=== PATIENT | female | born 1945 | race Caucasian/White ===

== ENCOUNTER → 2017-12-02 14:30 | Outpatient (CLI) | payer MEDICARE, SELFPAY ==
[2017-12-04 11:49] LABS: Cancer Antigen 125 24.8 U/mL (0.0-38.1)
== END ==
LOC: LABSPEC 14:31 → WOBLAB 14:32
PROVIDERS: Visit Provider Obstetrics & Gynecology
DX: N95.0 Postmenopausal bleeding (principal); D25.9 Leiomyoma of uterus, unspecified
CPT/HCPCS: 36415; 86304

== ENCOUNTER → 2018-01-26 14:35 | Outpatient (CLI) | payer MEDICARE, SELFPAY ==
--- NOTE | 2018-01-26 14:37 | BI_ITS ---
MAMMOGRAPHY - BILATERAL SCREENING REASON FOR EXAM: Female, 72 years old. Routine annual screening examination. PERTINENT HISTORY: Non-contributory. TECHNIQUE: Digital bilateral breast alicia (3D mammographic acquisition) in the CC and MLO projections. 2-D mediolateral oblique (MLO) and craniocaudad (CC) views of both breasts were obtained. CAD: Full Field Digital Mammography with Computer Added Detection was performed. COMPARISON: Comparison is made with prior study dated November 24, 2016 and February 22, 2015. FINDINGS: Breast Composition: There are scattered areas of fibroglandular density. Stable 3.4 mm x 6.5 mm well-defined nodular density in the medial retroareolar region of the left breast. This was demonstrated to be a cyst on prior ultrasound examination. No other significant abnormalities are identified. There has been no significant change since the prior study. BI/SCREENING MAMM (CAD), BILAT IMPRESSION: Stable bilateral screening mammogram. Yearly follow-up mammogram recommended. (A) ASSESSMENT CATEGORY: BIRADS Category 2: Benign. A letter regarding these results will be sent to the patient by the facility within 30 days. Approximately 10% of breast cancers are not detected by mammography. A normal mammogram should not delay biopsy of a clinically suspicious abnormality. [id number] Electronically Signed: Adan Ayala MD at 15:39 EDT Tel [phone], Service support ,
== END ==
PROVIDERS: Family Provider Family Medicine; PCP Family Medicine; Visit Provider Obstetrics & Gynecology
DX: Z12.31 Encounter for screening mammogram for malignant neoplasm of breast (principal)
CPT/HCPCS: 77063; 77067

== ENCOUNTER → 2019-03-17 13:09 | Outpatient (CLI) | payer BC, SELFPAY | PROVIDERS: Visit Provider Obstetrics & Gynecology | DX: N83.299 Other ovarian cyst, unspecified side (principal) | CPT/HCPCS: 36415; 86304 ==

== ENCOUNTER → 2019-05-13 | Outpatient (CLI) | payer MEDICARE, SELFPAY ==
--- NOTE | 2019-05-13 12:59 | BI_ITS ---
MAMMOGRAPHY - BILATERAL SCREENING REASON FOR EXAM: Female, 74 years old. Routine annual screening examination. PERTINENT HISTORY: Non-contributory. TECHNIQUE: Digital bilateral breast evie (3D mammographic acquisition) in the CC and MLO projections. 2-D mediolateral oblique (MLO) and craniocaudad (CC) views of both breasts were obtained. CAD: Full Field Digital Mammography with Computer Added Detection was performed. COMPARISON: Comparison is made with prior study dated January 26, 2018 and November 24, 2016. FINDINGS: Breast Composition: There are scattered areas of fibroglandular density. There are no dominant masses or suspicious calcifications. No other significant abnormalities are identified. There has been no significant change since the prior study. BI/SCREEN MAMM (CAD) W/EVIE BILAT IMPRESSION: Stable bilateral screening mammogram. Yearly follow-up mammogram recommended. (A) ASSESSMENT CATEGORY: BIRADS Category 1: Negative. A letter regarding these results will be sent to the patient by the facility within 30 days. Approximately 10% of breast cancers are not detected by mammography. A normal mammogram should not delay biopsy of a clinically suspicious abnormality. [id number] Electronically Signed: Adan Ayala, at 14:20 EDT , Service support ,
== END | disposition home or self-care (01) ==
PROVIDERS: Family Provider Family Medicine; PCP Family Medicine; Referring Provider Obstetrics & Gynecology; Visit Provider Obstetrics & Gynecology
DX: Z12.31 Encounter for screening mammogram for malignant neoplasm of breast (principal)
CPT/HCPCS: 77063; 77067

== ENCOUNTER 2019-07-30 04:42 | Emergency (ER) | payer MEDICARE, SELFPAY ==
[2019-07-30 04:44] VITALS: BP 166/86; PULSE 82; RESP 16; TEMP 36.8; O2SAT 98; BMI 23.6
[2019-07-30 04:55] VITALS: O2SAT 97
--- NOTE | 2019-07-30 04:55 | EKG12_ITS ---
Test Reason : CHEST PAIN Blood Pressure : / mmHG Vent. Rate : 079 BPM Atrial Rate : 079 BPM P-R Int : 170 ms QRS Dur : 094 ms QT Int : 382 ms P-R-T Axes : 062 044 056 degrees QTc Int : 438 ms Normal sinus rhythm Low voltage QRS Borderline ECG Confirmed by MIKA ROWE, RAYSHAWN ([id number]), film and video editor JAC TOBAR ([id number]) on 08/10/2019 9:23:04 A M Referred By: SUNDEEP Confirmed By:ALVARO BRENNAN MD
--- NOTE | 2019-07-30 04:56 | ED.VIS.GEN ---
History of Present Illness Chief Complaint: Chest Pain Informant: Patient Onset: Today Narrative: Presents for evaluation of chest pain symptoms starting shortly prior to arrival. Reports before midnight ate chili, had indigestion symptoms throughout the night with pain in the mid back. States had multiple bowel movements throughout the night however not diarrhea. No nausea or vomiting. States symptoms chest with slight pressure. Currently pain is in her upper back. No pain with deep breath. No exertional dyspnea. No tobacco history. Mother with DE at age of 72. Hypertension history. No diabetes or hypercholesterolemia. Reports trip to [place] recently, no leg swelling or cramps. No history of stress test. No history of PE or DVT. Prior similar symptoms: No Past Medical History - Allergies and Home Meds Allergies/Adverse Reactions: Allergies No Known Allergies Allergy (Verified 07/30/19 05:30) Primary Care Physician: Omid Tang III, MD [Primary Care Provider] - Smoking Status: Never smoker Review of Systems General: Denies: Chills, Fever, Sweats Eyes: Denies: Visual changes - bilaterally, Diplopia ENT: Denies: Rhinorrhea, Sore throat Cardiovascular: Reports: Chest pain. Denies: Palpitations Respiratory: Denies: Dyspnea, Cough, Dyspnea on exertion Gastrointestinal: Denies: Abdominal pain, Nausea, Vomiting, Diarrhea, Melena, Hematochezia Genitourinary: Denies: Dysuria, Hematuria, Frequency Musculoskeletal: Reports: Back pain. Denies: Extremity Pain Skin: Denies: Rash, Wounds Neurological: Denies: Headache, Weakness, Numbness Physical Exam Vital Signs/Narrative: Vital Signs Temp Pulse Resp BP Pulse Ox 07/30/19 04:44 98.2 F 82 16 166/86 H 98 Inital Vital Signs reviewed: Yes General: Well nourished, Well developed, No Acute Distress Head: Normocephalic, Atraumatic Eyes: Perrl, EOMI ENT: Moist mucous membranes, No rhinorrhea Neck: Supple, Nontender Cardiovascular: Regular rate, Regular rhythm, No murmurs Respiratory: No distress, CTA bilaterally, Chest nontender Abdomen: Soft, Nontender, Nondistended, Normal bowel sounds Back: Nontender, Normal Inspection Extremities: Nontender, No edema Skin: Normal color, No rash Neurological: Alert, Oriented x3, Cranial nerves II-XII grossly intact, Normal Strength, Normal Sensation Psychological: Normal affect, Normal Mood Diagnostic/Tx/Re-eval Abnormal Lab Results 07/30/19 07/30/19 07/30/19 04:50 04:50 04:50 WBC 8.8 RBC 4.43 Hgb 13.6 Hct 40.3 MCV 91.0 MCH 30.7 MCHC 33.7 RDW Std Deviation 44.0 H RDW Coeff of Lizzie 13.3 Plt Count 293 MPV 9.7 Immature Gran % (Auto) 0.200 Neut % (Auto) 60.6 Lymph % (Auto) 25.7 Rusk % (Auto) 11.0 H Eos % (Auto) 1.7 Baso % (Auto) 0.8 Absolute Neuts (auto) 5.3 Absolute Lymphs (auto) 2.27 Nucleated RBC % 0 PT 13.9 INR 1.1 APTT 30.2 D-Dimer Quant (PE/DVT) 0.51 H* Sodium 143 Potassium 3.7 Chloride 108 H Carbon Dioxide 26.0 Anion Gap 9 BUN 14 Creatinine 0.89 Estim Creat Clear Calc 51.13 Est GFR (MDRD) Af Amer 80 Est GFR (MDRD) Non-Af 66 BUN/Creatinine Ratio 15.7 Glucose 111 H Calcium 8.8 Total Bilirubin 0.40 Direct Bilirubin 0.11 AST 13 L ALT 15 Alkaline Phosphatase 55 Troponin I < 0.015 Total Protein 7.7 Albumin 3.9 Globulin 3.8 Lipase 124 Clinical Impression(s) from Imaging Studies Chest CTA 07/30/19 05:34 IMPRESSION: No demonstrated pulmonary embolism or arterial dissection. There is bronchiectasis in the right lung lower lobe. Cholelithiasis. Electronically Signed: Randy Machado, at 6:54 EDT Tel , Service support , - EKG Initial EKG Interpretation: Sinus Rhythm - Sinus rate of 79, no ST changes. Isolated T wave inversion in leads III. - Medical Decision Making Patient EKG nonspecific T wave inversion. She is chest pain-free on my evaluation, is complaining of more upper mid back pain. Labs are checked including abdominal labs of liver and lipase was normal troponin negative. D-dimer was slightly up at 0.51. She had increasing back pain during evaluation in the department. Initial order for morphine however she declined this and requested ibuprofen, 600 mg was given. Patient's age-adjusted d-dimer is normal, however she reports increasing pain therefore discussed obtaining CT angiogram for further rule out. She agreed. Results returned negative for any lung pathology noted cholelithiasis, she has no right upper quadrant pain. Her liver and lipase were normal white count is normal. Patient's heart score is a 3. Reevaluation states mild discomfort, will try GI cocktail, discussed heart pathway guideline with the patient, she will stay for 3-hour troponin. If negative, will have follow-up with PCP for further testing as outpatient. Signs and symptoms discussed return. All questions were answered. ED Disposition - Plan for ED Patient: Disposition: Home or Assisted Living Diagnosis: Chest pain, Cholelithiases Instructions: CHEST PAIN, Uncertain Cause, What Are Gallstones? Referrals: Omid Tang III, MD [Primary Care Provider] - 3-5 Days
[2019-07-30 05:21] LABS: Absolute Lymphocyte Count 2.27 X10^3/uL (0.83-4.51); Absolute Neutrophil Count 5.3 X10^3/uL (2.0-7.7); Basophil# 0.07 X10^3/uL; Basophil% 0.8 % (0-1); Eosinophil# 0.15 X10^3/uL; Eosinophils% 1.7 % (0-5); Hematocrit 40.3 % (37-47); Hemoglobin 13.6 g/dL (12.0-15.0); Lymphocyte # 2.27 X10^3/ul (4.0); Lymphocyte % 25.7 % (19-41); Mean Corp Hgb Conc 33.7 g/dL (32-36); Mean Corpuscular Hgb 30.7 pg (27.0-32.0); Mean Platelet Vol. 9.7 fl (6.2-12.0); Monocyte# 0.97 X10^3/uL; NRBC Flagged by Analyzer 0 % (0-5); Neutrophil # 5.34 X10^3/uL (2.7-7.7); Neutrophil % 60.6 % (47-70); Platelet Count 293 K/mm3 (150-450); RBC Distribution Width CV 13.3 % (11.6-14.6); Red Blood Count 4.43 M/mm3 (4.2-5.4); White Blood Count 8.8 K/mm3 (4.4-11.0)
[2019-07-30 05:27] LABS: AST(SGOT) 13 U/L (15-37); Alanine Aminotransfer ALT/SGPT 15 U/L (13-56); Albumin, Serum 3.9 g/dL (3.2-5.0); Alkaline Phosphatase 55 U/L (45-117); Anion Gap 9 (5-15); BUN 14 mg/dL (7-18); BUN/Creat Ratio 15.7 RATIO (10-20); Bilirubin, Direct 0.11 mg/dL (0.00-0.30); Calcium,Total 8.8 mg/dL (8.5-10.1); Chloride 108 mmol/L (98-107); Creatinine, Serum 0.89 mg/dL (0.55-1.02); EST Glomerular Filtration Rate 66 mL/min (>60); Est Glom Filt Rate - Afr Amer 80 mL/min (>60); Estimated Creatinine Clearance 51.13 ml/min; Globulin 3.8 g/dL (2.2-4.2); Glucose 111 mg/dL (74-106); Lipase 124 U/L (73-393); Potassium 3.7 mmol/L (3.5-5.1); Protein, Total 7.7 g/dL (6.4-8.2); Sodium Level 143 mmol/L (136-145)
[2019-07-30 05:28] LABS: International Normalized Ratio 1.1; Prothrombin Time (Protime)PT. 13.9 SECONDS (11.7-14.9)
[2019-07-30 05:29] LABS: Partial Thromboplast Time 30.2 Seconds (24.1-36.2)
[2019-07-30 05:32] LABS: D-Dimer Quantitative (DVT/PE) 0.51 FEU/ug/m (0.27-0.49)
--- NOTE | 2019-07-30 05:34 | CT_ITS ---
STUDY: CTA CHEST REASON FOR EXAM: Female, 74 years old. Chest and back pain. Elevated d-dimer. RADIATION DOSAGE (If Supplied By Facility): CTDIvol = ( 9.42 ) mGy, DLP = ( 253.17 ) mGycm TECHNIQUE: The examination was performed with the intravenous administration of IV 100mL [id number]-370 100ML. Post-processing of the angiographic images was performed, with multiplanar reformation and 3D reconstruction. Individualized dose optimization techniques were used for this CT. COMPARISON: None. FINDINGS: Normal enhancement of the main pulmonary artery and right and left pulmonary arteries. Normal enhancement of the bilateral peripheral pulmonary arteries. There is no demonstrated pulmonary embolism. Normal thoracic aorta and visualized great vessels. There is no demonstrated aortic dissection. Normal heart and pericardium. Normal mediastinum. Normal hilar regions. Normal visualized trachea and bronchi. The lungs are well expanded. There is bronchiectasis in the right lung lower lobe. Normal pleura. Normal chest wall structures. Normal osseous structures. Normal visualized upper abdomen. CT/CTA Chest W/WO Contrast IMPRESSION: No demonstrated pulmonary embolism or arterial dissection. There is bronchiectasis in the right lung lower lobe. Cholelithiasis. Electronically Signed: Randy Machado, at 6:54 EDT Tel , Service support ,
--- NOTE | 2019-07-30 05:34 | ED.RN ---
notified MD of d-dimer 0.51
[2019-07-30] MEDS: Ibuprofen 600 MG Tablet PO (05:35)
[2019-07-30 06:37] VITALS: BP 148/76; PULSE 68; RESP 18; O2SAT 97
[2019-07-30] MEDS: Mag Hydrox/Al Hydrox/Simeth 30 ML UDC PO (07:14)
[2019-07-30 07:45] VITALS: BP 151/78; PULSE 68; RESP 18; O2SAT 94
[2019-07-30 08:02] VITALS: BP 148/75; PULSE 67; RESP 18; O2SAT 96
== END 2019-07-30 09:06 | disposition home or self-care (01) ==
PROVIDERS: Emergency Provider Emergency Medicine; Family Provider Family Medicine; PCP Family Medicine
DX: K80.20 Calculus of gallbladder without cholecystitis without obstruction (principal); R07.89 Other chest pain; J47.9 Bronchiectasis, uncomplicated; I10 Essential (primary) hypertension; Z79.899 Other long term (current) drug therapy
CPT/HCPCS: 71275; 80048; 80076; 83690; 84484; 85025; 85379; 85610; 85730; 93005; 99285; Q9967; A4216

== ENCOUNTER 2019-09-26 11:34 | Day surgery (SDC) | payer MEDICARE, SELFPAY ==
[2019-08-23 09:24] VITALS: BMI 23.6
--- NOTE | 2019-08-23 10:04 | HP_ITS ---
Intake Vital Signs 08/23/19 Body Mass Index (BMI) 23.6 08/23/19 Height 5 ft 6 in 08/23/19 Weight: 142 lb 08/23/19 Body Mass Index (BMI) 22.8 08/23/19 Blood Pressure 165/75 H 08/23/19 Blood Pressure Location Rt brachial 08/23/19 Blood Pressure Position Sitting 08/23/19 Respiratory Rate 18 08/18/19 Body Mass Index (BMI) 23.6 Intake Visit Reasons: Cholithiasis CT 07/30 [facility] Seat Mender Required: No Is patient in pain?: No Allergies No Known Allergies Allergy (Verified 08/23/19 09:23) Medications Amlodipine Besylate 1 tab PO DAILY 07/30/19 [History Confirmed 08/23/19] Balsalazide Disodium 3 cap PO BID 07/30/19 [History Confirmed 08/23/19] Metoprolol(XL)Succ [Toprol Xl (Beta Gladys)] 50 mg PO DAILY 07/30/19 [History Confirmed 08/23/19] hydrochlorothiazide 12.5 mg tablet 12.5 mg PO .prn tab 08/23/19 [History Confirmed 08/23/19] [facility] Medical History HTN (hypertension) (Chronic) Family History Father Heart disease Hypertension Kidney disease CVA (cerebral vascular accident) Mother Heart disease Social History (Updated 08/23/19 @ 10:04 by Magnus Bruno MD) Smoking Status: Never smoker alcohol intake: never HPI HPI HPI: LUKE HUNTER, is a 74 F who presents to the office today for HPI HPI Surgical H&P: Yes HPI: LUKE HUNTER, is a 74 F who presents to the office today for Evaluation of symptomatic cholelithiasis. Patient had an episode of back pain that developed after she ate 2 bowls of chili and then a jelly donut. This progressed from back pain to chest pain with nausea. She subsequently went to the emergency department where she had a rather exhaustive work-up to include a CT scan of the chest which showed no pulmonary embolism or arterial dissection she had bronchiectasis in the right lung lobes and cholelithiasis. Patient states that she has had multiple episodes of waking up in the middle the night with back pain that have subsequently went away after taking some aspirin and having a bowel movement this is probably been going on for better than 5 years. Currently she is asymptomatic she does not have any abdominal pain she is not experiencing any nausea she is tolerating a diet and moving her bowels.Her liver function test at the time that she was having this episode were within normal limits. ROS General General: No weight change, appetite, fatigue, colon cancer, breast cancer or weakness HEENT HEENT: No difficulty swallowing, eye injury, eye surgery, swollen glands or hoarseness Endo Endocrine: No thyroid disease, diabetes mellitus, thyroid cancer, Hair loss, heat intolerance or cold intolerance Skin Skin: No rash or changing moles Breast Breast: No left breast lump, right breast lump, nipple discharge, breast pain, abnormal mammogram, abnormal US or breast enlargement Musc Musculoskeletal: No back problems, arthritis, rheumatoid arthritis, gout or joint pain Cardio Cardiovascular: Yes high blood pressure; no murmur, pacemaker, heart disease, atrial fibrillation, heart attack, heart stent, palpitations, shortness of breat with exertion or chest pain Psych Psychiatric: No depression, anxiety or hearing voices Resp Respiratory: No shortness of breath, No sleep apnea, No cough, No COPD, No asthma, No emphysema, No wheezing Gastro Gastrointestinal: No abdominal pain, No nausea or vomiting, No diarrhea, No constipation, No blood in stool, No acid reflux, No hemorrhoids, No ulcers, Yes gallbladder problem, No black,tarry stools Zane Hematologic: No blood thinners, No blood disorders, No bleeding, No anemia, No blood clots Neuro Neurologic: No system reviewed and no additional complaints, except as docu, No as per HPI, No abnormal walking, No abnormal hearing, No abnormal movements, No abnormal speech, No behavioral changes, No burning sensations, No confusion, No seizure-like activity, No unsteadiness, No dizziness, No localized weakness, No frequent falls, No headache(s), No lack of coordination, No loss of vision, No memory loss, No numbness, No other visual disturbances, No radiating pain, No restless legs, No sensory deficit, No fainting, No tingling, No tremor(s), No weakness, No other Exam Const General: no acute distress, well developed, well hydrated Orientation: oriented to person, oriented to place, oriented to time [facility] Head: normocephalic, atraumatic Ears: external ears normal Mouth: moist mucous membranes Eyes Sclera: sclerae normal Pupils: normal by confrontation Neck Neck: no lymphadenopathy noted Neck mass: No Thyroid: thyroid normal, symmetrical Chest Chest palpation & inspection: normal inspection of the chest Breast Palpation: No nipple discharge Resp Effort & Inspection: normal respiratory effort Auscultation: clear to auscultation bilaterally Percussion: percussion normal Cardio Rate: regular rate Rhythm: regular rhythm Heart Sounds: no murmurs GI Palpation: soft, no hepatosplenomegaly, no masses, nontender Rectal Exam: other Other: Rectal exam deferred. Extrem General: normal to inspection, no clubbing, cyanosis or edema Assessment & Plan Problems 1. Calculus of gallbladder with chronic cholecystitis without obstruction K80.10 Plan Reviewed the anatomy with the patient and discussed the procedure: Robotic assisted laparoscopic cholecystectomy with possible cholangiograms, possible open. Review risks including but not limited to bleeding, infection, hernia, bile leak, retained gallstones requiring another procedure ERCP- Endoscopic Retrograde Cholangiopancreatography, injury to another organ (bile ducts, common bile duct, small bowel, etc.) and conversion to an open procedure. All questions were answered. Coding Level of Care Code Off vis,new,level 3 Diagnoses Calculus of gallbladder with chronic cholecystitis without obstruction K80.10 ??Cholelithiasis location: gallbladder ??Cholecystitis acuity: chronic 08/23/19 1004 <Electronically signed by Magnus peter MD> Date _ Magnus Bruno MD I have re-examined the patient. There are no clinical changes since date of exam.
--- NOTE | 2019-09-26 09:28 | HP_ITS ---
Intake Vital Signs 08/23/19 Body Mass Index (BMI) 23.6 08/23/19 Height 5 ft 6 in 08/23/19 Weight: 142 lb 08/23/19 Body Mass Index (BMI) 22.8 08/23/19 Blood Pressure 165/75 H 08/23/19 Blood Pressure Location Rt brachial 08/23/19 Blood Pressure Position Sitting 08/23/19 Respiratory Rate 18 08/18/19 Body Mass Index (BMI) 23.6 Intake Visit Reasons: Cholithiasis CT 07/30 [facility] Bed Worker Required: No Is patient in pain?: No Allergies No Known Allergies Allergy (Verified 08/23/19 09:23) Medications Amlodipine Besylate 1 tab PO DAILY 07/30/19 [History Confirmed 08/23/19] Balsalazide Disodium 3 cap PO BID 07/30/19 [History Confirmed 08/23/19] Metoprolol(XL)Succ [Toprol Xl (Beta Gladys)] 50 mg PO DAILY 07/30/19 [History Confirmed 08/23/19] hydrochlorothiazide 12.5 mg tablet 12.5 mg PO .prn tab 08/23/19 [History Confirmed 08/23/19] [facility] Medical History HTN (hypertension) (Chronic) Family History Father Heart disease Hypertension Kidney disease CVA (cerebral vascular accident) Mother Heart disease Social History (Updated 08/23/19 @ 10:04 by Magnus Bruno MD) Smoking Status: Never smoker alcohol intake: never HPI HPI HPI: LUKE HUNTER, is a 74 F who presents to the office today for HPI HPI Surgical H&P: Yes HPI: LUKE HUNTER, is a 74 F who presents to the office today for Evaluation of symptomatic cholelithiasis. Patient had an episode of back pain that developed after she ate 2 bowls of chili and then a jelly donut. This progressed from back pain to chest pain with nausea. She subsequently went to the emergency department where she had a rather exhaustive work-up to include a CT scan of the chest which showed no pulmonary embolism or arterial dissection she had bronchiectasis in the right lung lobes and cholelithiasis. Patient states that she has had multiple episodes of waking up in the middle the night with back pain that have subsequently went away after taking some aspirin and having a bowel movement this is probably been going on for better than 5 years. Currently she is asymptomatic she does not have any abdominal pain she is not experiencing any nausea she is tolerating a diet and moving her bowels.Her liver function test at the time that she was having this episode were within normal limits. ROS General General: No weight change, appetite, fatigue, colon cancer, breast cancer or weakness HEENT HEENT: No difficulty swallowing, eye injury, eye surgery, swollen glands or hoarseness Endo Endocrine: No thyroid disease, diabetes mellitus, thyroid cancer, Hair loss, heat intolerance or cold intolerance Skin Skin: No rash or changing moles Breast Breast: No left breast lump, right breast lump, nipple discharge, breast pain, abnormal mammogram, abnormal US or breast enlargement Musc Musculoskeletal: No back problems, arthritis, rheumatoid arthritis, gout or joint pain Cardio Cardiovascular: Yes high blood pressure; no murmur, pacemaker, heart disease, atrial fibrillation, heart attack, heart stent, palpitations, shortness of breat with exertion or chest pain Psych Psychiatric: No depression, anxiety or hearing voices Resp Respiratory: No shortness of breath, No sleep apnea, No cough, No COPD, No asthma, No emphysema, No wheezing Gastro Gastrointestinal: No abdominal pain, No nausea or vomiting, No diarrhea, No constipation, No blood in stool, No acid reflux, No hemorrhoids, No ulcers, Yes gallbladder problem, No black,tarry stools Zane Hematologic: No blood thinners, No blood disorders, No bleeding, No anemia, No blood clots Neuro Neurologic: No system reviewed and no additional complaints, except as docu, No as per HPI, No abnormal walking, No abnormal hearing, No abnormal movements, No abnormal speech, No behavioral changes, No burning sensations, No confusion, No seizure-like activity, No unsteadiness, No dizziness, No localized weakness, No frequent falls, No headache(s), No lack of coordination, No loss of vision, No memory loss, No numbness, No other visual disturbances, No radiating pain, No restless legs, No sensory deficit, No fainting, No tingling, No tremor(s), No weakness, No other Exam Const General: no acute distress, well developed, well hydrated Orientation: oriented to person, oriented to place, oriented to time [facility] Head: normocephalic, atraumatic Ears: external ears normal Mouth: moist mucous membranes Eyes Sclera: sclerae normal Pupils: normal by confrontation Neck Neck: no lymphadenopathy noted Neck mass: No Thyroid: thyroid normal, symmetrical Chest Chest palpation & inspection: normal inspection of the chest Breast Palpation: No nipple discharge Resp Effort & Inspection: normal respiratory effort Auscultation: clear to auscultation bilaterally Percussion: percussion normal Cardio Rate: regular rate Rhythm: regular rhythm Heart Sounds: no murmurs GI Palpation: soft, no hepatosplenomegaly, no masses, nontender Rectal Exam: other Other: Rectal exam deferred. Extrem General: normal to inspection, no clubbing, cyanosis or edema Assessment & Plan Problems 1. Calculus of gallbladder with chronic cholecystitis without obstruction K80.10 Plan Reviewed the anatomy with the patient and discussed the procedure: Robotic assisted laparoscopic cholecystectomy with possible cholangiograms, possible open. Review risks including but not limited to bleeding, infection, hernia, bile leak, retained gallstones requiring another procedure ERCP- Endoscopic Retrograde Cholangiopancreatography, injury to another organ (bile ducts, common bile duct, small bowel, etc.) and conversion to an open procedure. All questions were answered. Coding Level of Care Code Off vis,new,level 3 Diagnoses Calculus of gallbladder with chronic cholecystitis without obstruction K80.10 ??Cholelithiasis location: gallbladder ??Cholecystitis acuity: chronic
[2019-09-26 12:02] VITALS: BP 152/68; PULSE 80; RESP 15; TEMP 37; O2SAT 98; BMI 21.4
[2019-09-26] MEDS: Lactated Ringers 1,000 ML 100 ML IV ×2 (12:15→12:29)
--- NOTE | 2019-09-26 13:40 | GALL_PTH ---
PATIENT: LUKE HUNTER LOC: [facility] [place] U#:[id number] AGE/SX: 74/F ROOM: RE09/26/[address]: Dr. Magnus Bruno MD : 1945 BED: DIS: 09/26/2019 SPEC #: [id number] RECD: 09/27/19 08:18 STATUS: ANALY RELaura #: [id number] ALLEN: 09/26/19 13:[address]: Magnus Bruno DEPT: SURGICAL PATHOLOGY RECD BY: Bonifacio Bryan ENTERED: 09/27/19 08:39 SP TYPE: SMITH RODRIGUEZ DR: Dr. Omid Tang III, MD Tissues: Gallbladder, NOS Procedures: Surgery Specimen Level III HEADER OPERATION: Robotic assisted laparoscopic cholecystectomy PRE-OP DIAGNOSIS: Symptomatic cholelithiasis TISSUE SUBMITTED: Gallbladder MICROSCOPIC DIAGNOSIS Gallbladder, cholecystectomy: Chronic cholecystitis and cholelithiasis. AM:sarabjit 09/28/19 MICROSCOPIC DESCRIPTION Slides are reviewed. GROSS DESCRIPTION Received is one container labeled with the patient's name and designated gallbladder. The specimen consists of a gallbladder measuring 9.5 x 4 x 3 cm. The external surface is smooth and glistening. Focally, it is granular, hemorrhagic and contains cautery artifact. The lumen of the gallbladder contains yellow-green mucoid bile and multiple black stones averaging 1.6 cm in greatest dimension. The mucosa is bile-stained and without any mass lesions. The gallbladder wall averages 0.1 cm in thickness and is free of mass lesions. Regional Project Manager sections of the gallbladder and the cystic duct are submitted in one cassette. / AM:sarabjit 09/27/19 TC:3 CPT: 31911
--- NOTE | 2019-09-26 14:38 | PCM.DC.GB ---
Discharge Diet: Light diet - advance as tolerated Discharge Activity: May Not Drive - for 2-3 days or while taking narcotic pain medications., - - Do not drive, work heavy equipment or sign legal documents for 24 hours. May shower in (days): 1 - with the bandage in place. Additional Activity Instructions:: Pain medication may cause nausea. You should typically eat light foods as you take your pain medications. Pain medication may also cause constipation. If this is a problem for you, please discuss with your doctor. Call your doctor if your incision/area has: Continuous Slow Oozing, Sudden Increased Bleeding, Increased Pain/ Swelling, Increased Redness, Foul Smelling Discharge Call your doctor if you observe: Fever of 101 or Higher Suture Line Care: Avoid Pulling/Pushing, Avoid Pinching/Bending Additional Dressing/Incision Instructions:: Leave operative bandaids on for 2 days. When you remove dressing, leave Steri-Strips on until your follow-up appointment, or until the Steri-Strips fall off on their own. Allergies/Adverse Reactions: Allergies lidocaine Adverse Reaction (Verified 09/26/19 12:01) Other severe shaking, increased HR Medications to take at Discharge Amlodipine Besylate 1 tab PO DAILY 07/30/19 Balsalazide Disodium 3 cap PO BID 07/30/19 Metoprolol(XL)Succ [Toprol Xl (Beta Gladys)] 50 mg PO DAILY 07/30/19 hydrochlorothiazide 12.5 mg tablet 12.5 mg PO .prn tab 08/23/19 Budesonide/Formoterol Fumarate [Symbicort 80-4.5 Mcg Inhaler] 1 puff IH DAILY 09/19/19 Cetirizine HCl [Zyrtec] 10 mg PO DAILY 09/19/19 Oxycodone HCl/Acetaminophen [Percocet 5/325] 1 - 2 tablet PO Q4H PRN PRN 4 Days #15 tablet 09/26/19 The following prescriptions were given: Oxycodone HCl/Acetaminophen [Percocet 5/325] 1 - 2 tablet PO Q4H PRN PRN 4 Days #15 tablet PRN Reason: Pain Transmission Status: Sent to [id number] Primary Care Physician: Omid Tang III, MD [Primary Care Provider] - Test Results: Test results from this visit will be discussed in further detail at your follow-up appointment, if applicable. Please Follow Up With: Magnus Bruno MD - Please call [phone] to schedule an appointment. When: 7 days after your surgery.
--- NOTE | 2019-09-26 14:38 | PCM.OPRPT ---
Problem List (1) Calculus of gallbladder with chronic cholecystitis without obstruction Status: Chronic Report of Operation Date of Procedure: 09/26/19 Pre-Operative Diagnosis: Symptomatic cholelithiasis Post-Operative Diagnosis: Same Surgery/Procedure Performed:: Robotically assisted laparoscopic cholecystectomy Type of Anesthesia:: General Anesthesiologist: Irvin Ferro Specimen's removed: Gallbladder Estimated Blood Loss (mL): < 25 cc Fluids Replaced: 1500 cc lr Description of Procedure: Patient was brought into the operating room. Placed in the supine position. Under excellent general anesthetic bed was placed in the upright position and rotated to the left and sterilely prepped draped in usual fashion. Incision above the umbilicus was made dissection was carried down to the fascia the fascia grasped with a Darian varies needle was placed inside the abdomen the abdomen was insufflated to 15 torr a 10/12 trocar was placed without difficulty. It was flank on the right by a #8 trocar and on the left #8 trocar and then further left with a #5 trocar. All these were placed under direct visualization without injury to underlying structures. The robot was brought in docked appropriately. The #5 trocar grasper was placed under direct visualization the fundus of the gallbladder was grasped and retracted in a cephalad direction. Significant adhesions were taken down from the gallbladder itself and the gallbladder was retracted further cephalad. I dissected out the cystic duct and the cystic artery and then posteriorly identifying my triangle without difficulty. I placed hemoclips proximally distally on the duct and ligated the duct I placed hemoclips proximally distally on the artery and ligated the artery. I used electrocautery for good hemostasis and the liver the gallbladder from the gallbladder bed without difficulty. I irrigated I had good hemostasis using cautery on the liver bed and a few spot areas. Placed a specimen in a specimen bag delivered through the umbilical port but I did have to lengthen the umbilical port and inferior direction just to get all of the gallstones out. I remove the trochars under direct visualization good hemostasis was noted. I closed the fascia the umbilical port with a [id number] stitch of 0 Vicryl x2 local was injected. Skin incisions were brought together with some particular stitches of 4-0 Monocryl. Steri-Strips applied sterile dressings were applied and the patient tolerated the procedure well. - Admit VTE Documentation VTE Present on Admission: No VTE Mechan Device Prophylaxis: SCD's VTE Pharm Prophylaxis ordered?: No Reason prophylaxis not ordered:: Treatment Not Indicated
[2019-09-26] MEDS: Cefazolin 2 GM in 0.9% Normal Saline 100 ML IV (14:46)
[2019-09-26] MEDS: Bupivacaine Mpf 0.5% 30 ML VIAL (15:50)
[2019-09-26 16:20] VITALS: BP 142/76; BP 152/68; PULSE 93; RESP 16; TEMP 36.6; O2SAT 100
[2019-09-26 16:30] VITALS: BP 141/72; BP 152/68; PULSE 72; RESP 16; O2SAT 96
[2019-09-26 16:45] VITALS: BP 142/75; BP 152/68; PULSE 70; RESP 16; O2SAT 99
[2019-09-26 16:52] VITALS: BP 136/69; BP 152/68; PULSE 62; RESP 16; TEMP 36.6; O2SAT 99
[2019-09-26 18:30] VITALS: BP 144/72; BP 152/68; PULSE 69; RESP 16; TEMP 37.1; O2SAT 96
== END 2019-09-26 18:37 | disposition home or self-care (01) ==
LOC: SDC 11:34 → AC 12:36
PROVIDERS: Family Provider Family Medicine; PCP Family Medicine; Referring Provider Surgery; Visit Provider Surgery
PROC: 0FT44ZZ Resection of Gallbladder, Percutaneous Endoscopic Approach (ICD-10-PCS; CPT 47562; principal; 2019-09-26 13:20)
DX: K80.10 Calculus of gallbladder with chronic cholecystitis without obstruction (principal); I10 Essential (primary) hypertension; Z79.899 Other long term (current) drug therapy
CPT/HCPCS: 00790; 47562; 88304; J7120; J2405; J3490

== ENCOUNTER → 2020-06-14 14:47 | Outpatient (CLI) | payer MEDICARE, SELFPAY ==
--- NOTE | 2020-06-14 14:49 | BI_ITS ---
MAMMOGRAPHY - BILATERAL SCREENING 3-D TOMOSYNTHESIS REASON FOR EXAM: Female, 75 years old. Annual screening mammogram. PERTINENT HISTORY: No significant family history. TECHNIQUE: 2-D mammograms and 3-D Tomosynthesis of the breast (s) were performed. CAD was performed. COMPARISON: 05/13/2019, 01/26/2018 FINDINGS: The breast composition is almost entirely fat. Scattered benign calcifications are seen. No dense spiculated masses or suspicious microcalcifications are identified. No architectural distortion is identified. There is no skin thickening or retraction. There has been no significant change since the prior study. BI/SCREEN MAMM (CAD) W/EVIE BILAT IMPRESSION: No mammographic signs of malignancy. Routine yearly mammograms recommended. ASSESSMENT CATEGORY: BIRADS Category 1: Negative. A letter regarding these results will be sent to the patient by the facility within 30 days. FOLLOW UP RECOMMENDATION: Yearly follow up mammogram recommended. (A) Approximately 10% of breast cancers are not detected by mammography. A normal mammogram should not delay biopsy of a clinically suspicious abnormality. Electronically Signed: Gordy Leal MD at 14:56 EDT , Service support ,
== END ==
PROVIDERS: PCP Family Medicine; Referring Provider Obstetrics & Gynecology; Visit Provider Obstetrics & Gynecology
DX: Z12.31 Encounter for screening mammogram for malignant neoplasm of breast (principal)
CPT/HCPCS: 77063; 77067

== ENCOUNTER → 2020-09-12 | Outpatient (CLI) | payer MEDICARE, SELFPAY | END | disposition home or self-care (01) | LOC: LABSPEC 15:26 | PROVIDERS: PCP Family Medicine; Visit Provider Obstetrics & Gynecology | DX: N30.00 Acute cystitis without hematuria (principal) | CPT/HCPCS: 87077; 87086; 87088; 87186 ==

== ENCOUNTER → 2021-06-24 14:53 | Outpatient (CLI) | payer MEDICARE, SELFPAY ==
--- NOTE | 2021-06-24 14:55 | BI_ITS ---
MAMMOGRAPHY - BILATERAL SCREENING 3-D TOMOSYNTHESIS REASON FOR EXAM: Female, 76 years old. SCREENING PERTINENT HISTORY: No significant family history. TECHNIQUE: 2-D mammograms and 3-D Tomosynthesis of the breast (s) were performed. CAD was performed. COMPARISON: 06/14/2020 FINDINGS: The breast composition is composed of scattered fibroglandular density. Scattered benign calcifications are seen. 8 mm oval obscured mass in the lower outer quadrant of the right breast and focal compression views recommended for further evaluation. No dominant mass left breast. No suspicious calcifications.. No architectural distortion is identified. There is no skin thickening or retraction. There has been no significant change since the prior study. BI/SCRN MAMM (CAD)W/EVIE BILAT IMPRESSION: 8mm oval obscured mass in the lower outer quadrant right breast and focal compression views recommended for further evaluation. ASSESSMENT CATEGORY: BIRADS Category 0: Incomplete. Need additional imaging evaluation as above. A letter regarding these results will be sent to the patient by the facility within 30 days. FOLLOW UP RECOMMENDATION: Additional imaging recommended as above. (E) Approximately 10% of breast cancers are not detected by mammography. A normal mammogram should not delay biopsy of a clinically suspicious abnormality. Electronically Signed: Norm Xavier MD at 18:12 EDT Tel , Service support ,
== END ==
PROVIDERS: Referring Provider Obstetrics & Gynecology; Visit Provider Obstetrics & Gynecology
DX: Z12.31 Encounter for screening mammogram for malignant neoplasm of breast (principal)
CPT/HCPCS: 77063; 77067

== ENCOUNTER → 2021-06-28 14:24 | Outpatient (CLI) | payer MEDICARE, SELFPAY ==
--- NOTE | 2021-06-28 14:32 | BI_ITS ---
MAMMOGRAPHY - UNILATERAL DIAGNOSTIC: RIGHT BREAST REASON FOR EXAM: Female, 76 years old. 8ML OVAL MASS ON RIGHT BREAST PERTINENT HISTORY: Non-contributory. TECHNIQUE: Digital examination. Mediolateral oblique (MLO) and craniocaudad (CC) views of the breast were obtained. CAD: CAD was not performed on this study. COMPARISON: 06/24/2021 FINDINGS: Breast Composition: There are scattered areas of fibroglandular density. Focal compression views do not confirm a mass in the lower outer quadrant of the right breast most consistent with normal breast parenchyma appear No other significant abnormalities are identified. BI/DIAG MAMM W/CAD, UNILAT IMPRESSION: Stable unilateral diagnostic mammogram. ASSESSMENT CATEGORY: BIRADS Category 1: Negative. A letter regarding these results will be sent to the patient by the facility within 30 days. FOLLOW-UP RECOMMENDATION: Yearly follow-up mammogram recommended. (A) Approximately 10% of breast cancers are not detected by mammography. A normal mammogram should not delay biopsy of a clinically suspicious abnormality. Electronically Signed: Norm Xavier MD at 15:26 EDT Tel , Service support ,
== END ==
PROVIDERS: Referring Provider Obstetrics & Gynecology; Visit Provider Obstetrics & Gynecology
DX: N63.13 Unspecified lump in the right breast, lower outer quadrant (principal)
CPT/HCPCS: 77065

== ENCOUNTER → 2021-10-17 14:23 | Outpatient (CLI) | payer MEDICARE, SELFPAY ==
--- NOTE | 2021-10-17 14:15 | EMB_PTH ---
PATIENT: LUKE HUNTER LOC: [facility] U#:[id number] AGE/SX: 80/F ROOM: RE10/17/[address]: Dr. Bhargav Ferro MD : [id number] BED: DIS: SPEC #: [id number] RECD: 10/17/21 16:47 STATUS: ANALY TING #: [id number] ALLEN: 10/17/21 14:[address]: Bhargav Ferro DEPT: SURGICAL PATHOLOGY RECD BY: Ramona Carmichael ENTERED: 10/20/21 17:03 SP TYPE: ENDOM BX/C JENNIFER DR: No Primary Care Phys Tissues: Endometrium, NOS Procedures: Surgery Specimen Level IV HEADER OPERATION: Endometrial biopsy PRE-OP DIAGNOSIS: PMB TISSUE SUBMITTED: Endometrial biopsy MICROSCOPIC DIAGNOSIS Endometrial biopsy: Strips benign endometrial epithelium and superficial fragments of benign endometrial tissue, consistent with atrophic endometrium and blood clots. SJ:sarabjit 10/22/2021 MICROSCOPIC DESCRIPTION Slides are reviewed. GROSS DESCRIPTION Received in fixative is one container labeled with the patient's name and designated EM biopsy. The specimen consists of multiple fragments of hemorrhagic soft tissue that in aggregate measure 1.5 x 0.5 x 0.1 cm. The specimen is totally submitted in one cassette. / SJ:sarabjit 10/21/21 TC:4 CPT: 44211
[2021-10-19 11:53] LABS: Cancer Antigen 125 15.1 U/mL (0.0-38.1)
== END ==
PROVIDERS: Visit Provider Obstetrics & Gynecology
DX: N95.0 Postmenopausal bleeding (principal)
CPT/HCPCS: 36415; 86304; 88305

== ENCOUNTER → 2022-10-03 | Outpatient (CLI) | payer MEDICARE, SELFPAY ==
[2022-10-03 13:12] LABS: LDH 152 U/L (84-246)
[2022-10-04 09:48] LABS: AFP, Tumor Marker 2.5 ng/mL (0.0-9.2); Cancer Antigen 125 17.8 U/mL (0.0-38.1); Carbohydrate AG 19-9 9 U/mL (0-35); Carcinoembryonic Antigen 1.4 ng/mL (0.0-4.7)
== END | disposition home or self-care (01) ==
LOC: WOBLAB 10:12
PROVIDERS: Visit Provider Student in an Organized Health Care Education/Training Program
DX: N83.201 Unspecified ovarian cyst, right side (principal)
CPT/HCPCS: 36415; 82105; 82378; 83615; 86301; 86304

== ENCOUNTER → 2022-10-14 | Outpatient (CLI) | payer MEDICARE, SELFPAY ==
--- NOTE | 2022-10-14 12:37 | BI_ITS ---
MAMMOGRAPHY - BILATERAL SCREENING REASON FOR EXAM: Female, 77 years old. Routine annual screening examination. PERTINENT HISTORY: Non-contributory. TECHNIQUE: Digital bilateral breast evie (3D mammographic acquisition) in the CC and MLO projections. 2-D mediolateral oblique (MLO) and craniocaudad (CC) views of both breasts were obtained. CAD: Full Field Digital Mammography with Computer Added Detection was performed. COMPARISON: Comparison is made with prior study dated 06/24/2021 and 06/14/2020. FINDINGS: Breast Composition: There are scattered areas of fibroglandular density. There are no dominant masses or suspicious calcifications. No other significant abnormalities are identified. There has been no significant change since the prior study. BI/SCRN MAMM (CAD)W/EVIE BILAT IMPRESSION: Stable bilateral screening mammogram. Yearly follow-up mammogram recommended. (A) ASSESSMENT CATEGORY: BIRADS Category 1: Negative. A letter regarding these results will be sent to the patient by the facility within 30 days. Approximately 10% of breast cancers are not detected by mammography. A normal mammogram should not delay biopsy of a clinically suspicious abnormality. [id number] Electronically Signed: Adan Ayala MD at 14:11 EST ,
== END | disposition home or self-care (01) ==
LOC: OPBI 12:35
PROVIDERS: PCP Internal Medicine; Referring Provider Student in an Organized Health Care Education/Training Program; Visit Provider Student in an Organized Health Care Education/Training Program
DX: Z12.31 Encounter for screening mammogram for malignant neoplasm of breast (principal)
CPT/HCPCS: 77063; 77067

== ENCOUNTER → 2023-03-18 | Outpatient (CLI) | payer MEDICARE, SELFPAY | END | disposition home or self-care (01) | PROVIDERS: PCP Internal Medicine; Referring Provider Ophthalmology; Visit Provider Ophthalmology | DX: H53.2 Diplopia (principal) | CPT/HCPCS: 36415 ==

== ENCOUNTER → 2023-11-19 | Outpatient (CLI) | payer MEDICARE, SELFPAY ==
--- NOTE | 2023-11-19 13:20 | BI_ITS ---
MAMMOGRAPHY - BILATERAL SCREENING REASON FOR EXAM: Female, 78 years old. Routine annual screening examination. PERTINENT HISTORY: Non-contributory. TECHNIQUE: Digital bilateral breast evie (3D mammographic acquisition) in the CC and MLO projections. 2-D mediolateral oblique (MLO) and craniocaudad (CC) views of both breasts were obtained. CAD: Full Field Digital Mammography with Computer Added Detection was performed. COMPARISON: Comparison is made with prior study dated October 14, 2022 and June 24, 2021. FINDINGS: Breast Composition: There are scattered areas of fibroglandular density. There are no dominant masses or suspicious calcifications. No other significant abnormalities are identified. There has been no significant change since the prior study. BI/SCRN MAMM (CAD)W/EVIE BILAT IMPRESSION: Stable bilateral screening mammogram. Yearly follow-up mammogram recommended. (A) ASSESSMENT CATEGORY: BIRADS Category 1: Negative. A letter regarding these results will be sent to the patient by the facility within 30 days. Approximately 10% of breast cancers are not detected by mammography. A normal mammogram should not delay biopsy of a clinically suspicious abnormality. [id number] Electronically Signed: Adan Ayala MD at 15:04 EST ,
== END | disposition home or self-care (01) ==
LOC: OPBI 13:18
PROVIDERS: PCP Internal Medicine; Referring Provider Obstetrics & Gynecology; Visit Provider Obstetrics & Gynecology
DX: Z12.31 Encounter for screening mammogram for malignant neoplasm of breast (principal)
CPT/HCPCS: 77063; 77067

== ENCOUNTER 2023-11-20 09:31 | Day surgery (SDC) | payer MEDICARE, SELFPAY ==
--- NOTE | 2023-10-14 15:49 | PCM.HP.BLA ---
History and Physical Date of Admission: 10/23/23 Expand All Collapse All Pre-Op History and Physical ? HPI: The patient is a 78 year old female presenting for discussion regarding PMB and EM polyps on Endosee. Would like to proceed with surgical intervention: ? pre-operative visit. She is scheduled for Hysteroscopy D&C and polypectomy, for EM thicking, EM polyps, PMB on 10/23/23 Procedure discussed along with risks, benefits and complications. Other alternatives discussed for management. Consent form signed? Yes. ? ? PAST MEDICAL HISTORY PAST MEDICAL HISTORY Diagnosis Date ? Allergic rhinitis, cause unspecified ? ? Allergy-induced asthma 08/20/2015 ? Anxiety 08/20/2015 ? Benign hypertension 08/20/2015 ? Ulcerative colitis without complications (HCC) 08/20/2015 ? ? PAST SURGICAL HISTORY PAST SURGICAL HISTORY Procedure Laterality Date ? LIGATE FALLOPIAN TUBE ? ? ? NONE ? ? ? REMOVAL GALLBLADDER ? CURRENT MEDICATIONS Current Outpatient Medications Medication Sig Dispense Refill ? Estradiol-Norethindrone Acet (ACTIVELLA) 1-0.5 mg per tablet Take 1 tablet by mouth once daily. 90 tablet 2 ? clobetasol (TEMOVATE) 0.05 % ointment Apply 1 application to affected area twice daily. X 4 weeks. Then use once weekly. 30 g 0 ? metoprolol succinate ER (TOPROL XL) 50 mg 24 hr tablet Take 1 tablet by mouth once daily. 90 tablet 3 ? amLODIPine (NORVASC) 5 mg tablet Take 1 tablet by mouth once daily. 90 tablet 3 ? balsalazide (COLAZAL) 750 mg capsule TAKE THREE CAPSULES BY MOUTH DAILY 270 capsule 3 ? Hydrochlorothiazide 12.5 mg capsule Take 1 capsule by mouth once daily. (Patient taking differently: Take 12.5 mg by mouth once daily. PRN) 30 capsule 12 ? budesonide-formoterol (SYMBICORT) 80-4.5 mcg/actuation inhaler Inhale 2 Puffs as instructed twice daily. ? 0 ? ACTIVELLA 1 MG-0.5 MG TAB Take one(1) tablet daily. 30 2 ? No current facility-administered medications for this visit. ? ? ALLERGIES: Patient has no known allergies. ? PERSONAL HISTORY: SOCIAL HISTORY Social History ? Tobacco Use ? Smoking status: Never ? Smokeless tobacco: Never Vaping Use ? Vaping Use: Never used Substance Use Topics ? Alcohol use: No ? Drug use: No ? FAMILY HISTORY: FAMILY HISTORY FAMILY HISTORY Problem Relation Age of Onset ? Cancer Father ? ? bladder, smoker ? Stroke Father ? ? Cancer Mother ? ? lung. smoker ? Coronary Artery Disease Mother ? ? CABG ? Hypertension Brother ? ? Diabetes Brother ? ? other (aortic aneurysm) Brother ? ? ? REVIEW OF SYMPTOMS: negative except as noted above PHYSICAL EXAMINATION: ? VITALS: Blood pressure 136/80, pulse 64, weight 151 lb (68.5 kg), SpO2 97%. ? GENERAL: The patient is well nourished, well hydrated in no acute distress. , The patient is oriented to time, place, and person. NECK: Supple. No lynphadenopathy, normal thyroid, no thyromegaly. LUNGS: Clear to auscultation bilaterally. no wheezes, rhonchi or rales HEART: Regular rate and rhythm, Normal heart sounds, and No murmurs or gallops ? IMPRESSION: EM polyps, EM thickening and PMB ? PLAN: Hysteroscopy, D&C, polypectomy with symphion ? Pt has been counseled on risks/benefits and alternatives of surgery including but not limited to anesthesia, bleeding, infection, uterine perforation with subsequent injury to pelvic structures including bowel, bladder, ureters and vessels. Pt wishes to proceed with surgery at this time. ? Pre and post op instructions reviewed. ? Pt declines BSO for ovarian cyst- would like repeat ultrasound at 6 months. ? I have reviewed and updated past medical and surgical history, medications and allergies Rose Mary Clemons MD
[2023-11-17 13:56] LABS: Hematocrit 38.6 % (37-47); Hemoglobin 12.8 g/dL (12.0-15.0); Mean Corp Hgb Conc 33.2 g/dL (32-36); Mean Corpuscular Hgb 30.5 pg (27.0-32.0); Mean Corpuscular Volume 92.1 fL (81-99); Mean Platelet Vol. 9.8 fl (6.2-12.0); Platelet Count 288 K/mm3 (150-450); RBC Distribution Width SD 49.5 fl (35.1-43.9); Red Blood Count 4.19 M/mm3 (4.2-5.4); White Blood Count 6.3 K/mm3 (4.4-11.0)
[2023-11-17 14:15] LABS: Anion Gap 3 (5-15); BUN 15 mg/dL (7-18); BUN/Creat Ratio 18.9 RATIO (10-20); Calcium,Total 9.3 mg/dL (8.5-10.1); Chloride 109 mmol/L (98-107); Creatinine, Serum 0.79 mg/dL (0.55-1.02); EST Glomerular Filtration Rate 74 mL/min (>60); Est Glom Filt Rate - Afr Amer 90 mL/min (>60); Glucose 99 mg/dL (74-106); Potassium 3.8 mmol/L (3.5-5.1); Sodium Level 139 mmol/L (136-145)
--- NOTE | 2023-11-18 13:52 | PCM.HP.BLA ---
History and Physical Date of Admission: 11/18/23 Pre-Op History and Physical HPI: The patient is a 78 year old female presenting for pre-operative visit. She is scheduled for Hysteroscopy D&C, polypectomy for PMB, EM polyp on 11/20/23. Procedure discussed along with risks, benefits and complications. Other alternatives discussed for management. Consent form signed? Yes. PAST MEDICAL HISTORY Diagnosis Date ? Allergic rhinitis, cause unspecified ? Allergy-induced asthma 08/20/2015 ? Anxiety 08/20/2015 ? Benign hypertension 08/20/2015 ? Ulcerative colitis without complications (HCC) 08/20/2015 PAST SURGICAL HISTORY Procedure Laterality Date ? LIGATE FALLOPIAN TUBE ? NONE ? REMOVAL GALLBLADDER Current Outpatient Medications Medication Sig Dispense Refill ? Estradiol-Norethindrone Acet (ACTIVELLA) 1-0.5 mg per tablet Take 1 tablet by mouth once daily. 90 tablet 2 ? clobetasol (TEMOVATE) 0.05 % ointment Apply 1 application to affected area twice daily. X 4 weeks. Then use once weekly. 30 g 0 ? metoprolol succinate ER (TOPROL XL) 50 mg 24 hr tablet Take 1 tablet by mouth once daily. 90 tablet 3 ? amLODIPine (NORVASC) 5 mg tablet Take 1 tablet by mouth once daily. 90 tablet 3 ? balsalazide (COLAZAL) 750 mg capsule TAKE THREE CAPSULES BY MOUTH DAILY 270 capsule 3 ? Hydrochlorothiazide 12.5 mg capsule Take 1 capsule by mouth once daily. (Patient taking differently: Take 12.5 mg by mouth once daily. PRN) 30 capsule 12 ? budesonide-formoterol (SYMBICORT) 80-4.5 mcg/actuation inhaler Inhale 2 Puffs as instructed twice daily. (Patient not taking: Reported on 11/18/2023) 0 ? ACTIVELLA 1 MG-0.5 MG TAB Take one(1) tablet daily. 30 2 No current facility-administered medications for this visit. ALLERGIES: Patient has no known allergies. PERSONAL HISTORY: Social History Tobacco Use ? Smoking status: Never ? Smokeless tobacco: Never Vaping Use ? Vaping Use: Never used Substance Use Topics ? Alcohol use: No ? Drug use: No FAMILY HISTORY: FAMILY HISTORY Problem Relation Age of Onset ? Cancer Father bladder, smoker ? Stroke Father ? Cancer Mother lung. smoker ? Coronary Artery Disease Mother CABG ? Hypertension Brother ? Diabetes Brother ? other (aortic aneurysm) Brother REVIEW OF SYMPTOMS: negative except as noted above PHYSICAL EXAMINATION: VITALS: Blood pressure 118/68, pulse 71, weight 147 lb (66.7 kg), SpO2 96%. GENERAL: The patient is well nourished, well hydrated in no acute distress. , The patient is oriented to time, place, and person. NECK: full range of motion LUNGS: Clear to auscultation bilaterally. no wheezes, rhonchi or rales HEART: Regular rate and rhythm, Normal heart sounds, and No murmurs or gallops IMPRESSION: 78yo with PMB, EM polyps PLAN: Hysteroscopy, D&C, Polypectomy with Symphion Pt has been counseled on risks/benefits and alternatives of surgery including but not limited to anesthesia, bleeding, infection, uterine perforation with subsequent to injury to pelvic structures including bowel, bladder, ureters and vessels. Pt wishes to proceed with surgery at this time. Pre and post op instructions reviewed I have reviewed and updated past medical and surgical history, medications and allergies Rose Mary Clemons MD
[2023-11-20] VITALS (8 sets, daily range): BP systolic 83–149; BP diastolic 45–73; PULSE 52–66; RESP 16–18; TEMP 36.3–37.3; O2SAT 94–99; BMI 22.8
--- OUTSIDE RECORDS SUMMARY | 2023-11-20 10:04 | XMS RPT_ITS | CCD ---
Author Name Unknown Address [email or web address] [place] [address] Organization [facility] Care Team Providers Care Director Financial Services Name Role Phone Unavailable Primary Care Provider Unavailabl e Jennifer DO Екатерина Unavailable Jennifer DO, Екатерина Unavailable [phone] Lamar BIRCH Aga Unavailable Unavailable Unavailable Unavailable Jennifer DO Екатерина Attending Unavailable Jennifer DO Екатерина Consulting Unavailable Crys BIRCH Kayela Unavailable Unavailable Unavailable Primary Care Provider Unavailabl e Unavailable Unavailable ARMIN MCKEON Referring Unavail able AVRIL MCKEONRE Attending Unavail able NEAVRIL LAYRE Attending Unavail able NEJOAOT DUKEIDRE Attending Unavail able NEAVRIL LAYRE Attending Unavail able Medications Current Medications Medication Drug Class(es) Dates Sig (Normalized) Sig (Original) amoxicillin 875 mg oral tablet (1 source) Penicillin-class Antibacterial Start: 06-18-2023 End: 06-25-2023 take 1 tablet by mouth twice daily amoxicillin (AMOXIL) 875 mg tablet Take 1 tablet by mouth twice daily for 7 days. 14 tablet 0 06/18/2023 06/25/2023 Active Completed/Discontinued Medications Medication Drug Class(es) Dates Sig (Normalized) Sig (Original) amLODIPine 5 mg oral tablet (16 sources) Dihydropyridine Calcium Channel Gladys Start: 08-28-2022 take 1 tablet by mouth once daily amLODIPine (NORVASC) 5 mg tablet Take 1 tablet by mouth once daily. 90 tablet 3 08/28/2022 Active Problems Active Problems Problem Classification Problem Date Documented Da te Episodic/Chronic Anxiety disorders (10 sources) Anxiety; Translations: [Anxiety disorder, unspecified] Onset: 08-20-2015 08-20-2015 Chronic Asthma (20 sources) Allergic asthma; Translations: [Unspecified asthma, uncomplicated] Onset: 08-20-2015 08-20-2015 Chronic Past or Other Problems Problem Classification Problem Date Documented Date Episodic/Chronic Noninfectious gastroenteritis (10 sources) Non-specific colitis; Translations: [Noninfective gastroenteritis and colitis, unspecified] Onset: 06-16-2018 06-16-2018 Episodic Other non-epithelial cancer of skin (10 sources) History of malignant basal cell neoplasm of skin; Translations: [Personal history of other malignant neoplasm of skin] Onset: 05-23-2014 05-23-2014 Episodic Unclassified (6 sources) Pregnancies (); Translations: [Pregnancies ()] 09-26-2022 Results Test Name Value Interpretation Reference Range Facil ity Vital Signs Date Time Vital Sign Value Performing Clinician Facility 10-14-2023 11:29-0500 Body weight 68.49 kg Armin Fuentes MD Work Phone: [facility] 10-14-2023 11:29-0500 Diastolic blood pressure 80 mm[Hg] Armin Fuentes MD Work Phone: [facility] 10-14-2023 11:29-0500 Heart rate 64 /min Armin Fuentes MD Work Phone: [facility] 10-14-2023 11:29-0500 SaO2% (BldA) [Mass fraction] 97 % Armin Fuentes MD Work Phone: [facility] 10-14-2023 11:29-0500 Systolic blood pressure 136 mm[Hg] Armin Fuentes MD Work Phone: [facility] 09-15-2023 14:27-0500 Body weight 67.13 kg Armin Fuentes MD Work Phone: [facility] 09-15-2023 14:27-0500 Diastolic blood pressure 74 mm[Hg] Armin Fuentes MD Work Phone: [facility] 09-15-2023 14:27-0500 Systolic blood pressure 134 mm[Hg] Armin Fuentes MD Work Phone: [facility] 06-18-2023 12:33-0400 Body temperature 98.2 [degF] Brandy Praisler-Wood TECHNICIAN TRAINEE.CHEMICAL HANDLER Work Phone: [facility] 06-18-2023 12:33-0400 Body weight 67.86 kg Brandy Praisler-Wood TECHNICIAN TRAINEE.CHEMICAL HANDLER Work Phone: [facility] 06-18-2023 12:33-0400 Diastolic blood pressure 96 mm[Hg] Brandy Praisler-Wood TECHNICIAN TRAINEE.CHEMICAL HANDLER Work Phone: [facility] 06-18-2023 12:33-0400 Heart rate 71 /min Brandy Praisler-Wood TECHNICIAN TRAINEE.CHEMICAL HANDLER Work Phone: [facility] 06-18-2023 12:33-0400 Respiratory rate 18 /min Brandy Praisler-Wood TECHNICIAN TRAINEE.CHEMICAL HANDLER Work Phone: [facility] 06-18-2023 12:33-0400 SaO2% (BldA) [Mass fraction] 95 % Brandy Praisler-Wood TECHNICIAN TRAINEE.CHEMICAL HANDLER Work Phone: [facility] 06-18-2023 12:33-0400 Systolic blood pressure 160 mm[Hg] Brandy Praisler-Wood TECHNICIAN TRAINEE.CHEMICAL HANDLER Work Phone: [facility] 09-26-2022 10:33-0500 Body height 170.81 cm Aga Newton [facility]; [facility] Work Phone: 09-26-2022 10:33-0500 Body mass index (BMI) [Ratio] 22.41 kg/m2 Aga [facility]; [facility] Work Phone: 09-26-2022 10:33-0500 Body surface area Derived from formula 1.76 m2 Aga [facility]; [facility] Work Phone: 09-26-2022 10:33-0500 Body temperature 98 [degF] Aga [facility] Comprehen[facility] ve [facility]; [facility] Work Phone: Encounters Encounter Date Encounter Type Care Provider Facility Start: 11-18-2023 End: 11-18-2023 ambulatory ARMIN FUENTES Facility:[facility] Start: 10-14-2023 End: 10-14-2023 ambulatory ARMIN MEILY FUENTES Facility:[facility] Start: 10-14-2023 End: 10-14-2023 Patient encounter procedure Armin Fuentes MD Work Phone: OB/Gynecology Procedures Date Procedure Procedure Detail Performing Clinician Start: 10-14-2022 End: 10-14-2022 SCRN MAMM (CAD)W/EVIE BILAT Procedure Note: See Note; NOTES: [facility] Services [address] [place] [address] SCRN MAMM (CAD)W/EVIE BILAT MR#: [id number] Acct: [id number] Name: ADELAGERARDROSIE MARIA SON Rep #: [id number] : [id number] F 77 From: Adan hunter MD PCP: Dr. Екатерина Rodriguez DO Status: REG CLI Study: SCRN MAMM (CAD)W/EVIE BILAT Date of Exam: 09/26 Exam# [id number] Ordering Dr: Akila Lopez DO MAMMOGRAPHY - BILATERAL SCREENING REASON FOR EXAM: Female, 77 years old. Routine annual screening examination. PERTINENT HISTORY: Non-contributory. TECHNIQUE: Digital bilateral breast evie (3D mammographic acquisition) in the CC and MLO projections. 2-D mediolateral oblique (MLO) and craniocaudad (CC) views of both breasts were obtained. CAD: Full Field Digital Mammography with Computer Added Detection was performed. COMPARISON: Comparison is made with prior study dated 06/24/2021 and 06/14/2020. FINDINGS: Breast Composition: There are scattered areas of fibroglandular density. There are no dominant masses or suspicious calcifications. No other significant abnormalities are identified. There has been no significant change since the prior study. BI/SCRN MAMM (CAD)W/EVIE BILAT IMPRESSION: Stable bilateral screening mammogram. Yearly follow-up mammogram recommended. (A) ASSESSMENT CATEGORY: BIRADS Category 1: Negative. A letter regarding these results will be sent to the patient by the facility within 30 days. Approximately 10% of breast cancers are not detected by mammography. A normal mammogram should not delay biopsy of a clinically suspicious abnormality. [id number] Electronically Signed: Adan Ayala MD at 14:11 EST , CC: Dr. Akila Lopez, DO; Dr. Екатерина Rodriguez, Net Architect: Signed Екатерина Rodriguez DO Work Phone: Start: 07-11-2022 STREP A MOLECULAR (POC) Vianey Nuñez PA-C Work Phone: Start: 08-11-2019 Adult depression screening assessment Vianey Nuñez PA-C Work Phone: Start: 10-26-2015 End: 10-26-2015 Colonscopy Aga Newton CMA Plan of Treatment Date Care Activity Detail Author Start: 09-15-2023 End: 12-15-2023 Cancer Ag 125 [Units/volume] in Serum or Plasma CA 125 BLD Lab Routine Cyst of right ovary Expected: 09/15/2023, Expires: 12/15/2023 [facility] Work Phone: Immunizations Immunization Date Immunization Notes Care Provider Fa cility 12-20-2020 COVID-19 vaccine, ag e 12+ yr (PFIZER-BIONTECH - PURPLE TOP) Vianey Nuñez PA-C Work Phone: [facility] 10-24-2016 influenza virus vacc ine, unspecified formulation Armin Fuentes MD Work Phone: [facility] Payers Date Payer Category Payer Unknown [id number] 2018 Unknown [id number] 1945 Unknown [id number] Social History Date Type Detail Facility Start: 07-11-2022 Tobacco smoking status NHIS Never smoked tobacco [facility] Start: 07-11-2022 Tobacco use and exposure Smokeless tobacco non-user [facility] Start: 07-11-2022 End: 10-14-2023 Alcohol intake Current non-drinker of alcohol (finding) [facility] Start: 1945 Sex Assigned At Not on file [facility] Start: 07-01-2022 End: 07-11-2022 Exposure to SARS-CoV-2 (event) Not sure [facility] Start: 07-11-2022 End: 06-11-2023 Caffeine Use Caffeine Use [facility] Work Phone: Clinical Notes 07-11-2022 to 11-18-2023 Armin Mckeon MD - 10/14/2023 3:43 PM Armin Lovell MD - 10/14/2023 3:43 PM ESTTelephone Encounter - Sanam Farmer RN - 09/25/2023 10:42 AM ESTPatient Instructions Note Date & Type Note Facility 11-18-2023 Note HNO ID: [id number] Author: ARMIN MCKEON MD Service: ? Author Type: Physician Type: Progress Notes Filed: 11/18/2023 13:53 Note Text: [facility] 10-14-2023 Note HNO ID: [id number] Author: Armin Mckeon MD Service: ? Author Type: Physician Type: Progress Notes Filed: 10/14/2023 3:50 PM Note Text: [facility] 10-14-2023 History and physical note Pre-Op History and Physical HPI: The patient is a 78 year old female presenting for discussion regarding PMB and EM polyps on Endosee. Would like to proceed with surgical intervention: pre-operative visit. She is scheduled for Hysteroscopy D&C and polypectomy, for EM thicking, EM polyps, PMB on 10/23/23 Procedure discussed along with risks, benefits and complications. Other alternatives discussed for management. Consent form signed? Yes. PAST MEDICAL HISTORY Diagnosis Date Allergic rhinitis, cause unspecified Allergy-induced asthma 08/20/2015 Anxiety 08/20/2015 Benign hypertension 08/20/2015 Ulcerative colitis without complications (HCC) 08/20/2015 PAST SURGICAL HISTORY Procedure Laterality Date LIGATE FALLOPIAN TUBE NONE REMOVAL GALLBLADDER Current Outpatient Medications Medication Sig Dispense Refill Estradiol-Norethindrone Acet (ACTIVELLA) 1-0.5 mg per tablet Take 1 tablet by mouth once daily. 90 tablet 2 clobetasol (TEMOVATE) 0.05 % ointment Apply 1 application to affected area twice daily. X 4 weeks. Then use once weekly. 30 g 0 metoprolol succinate ER (TOPROL XL) 50 mg 24 hr tablet Take 1 tablet by mouth once daily. 90 tablet 3 amLODIPine (NORVASC) 5 mg tablet Take 1 tablet by mouth once daily. 90 tablet 3 balsalazide (COLAZAL) 750 mg capsule TAKE THREE CAPSULES BY MOUTH DAILY 270 capsule 3 Hydrochlorothiazide 12.5 mg capsule Take 1 capsule by mouth once daily. (Patient taking differently: Take 12.5 mg by mouth once daily. PRN) 30 capsule 12 budesonide-formoterol (SYMBICORT) 80-4.5 mcg/actuation inhaler Inhale 2 Puffs as instructed twice daily. 0 ACTIVELLA 1 MG-0.5 MG TAB Take one(1) tablet daily. 30 2 No current facility-administered medications for this visit. ALLERGIES: Patient has no known allergies. PERSONAL HISTORY: Social History Tobacco Use Smoking status: Never Smokeless tobacco: Never Vaping Use Vaping Use: Never used Substance Use Topics Alcohol use: No Drug use: No FAMILY HISTORY: FAMILY HISTORY Problem Relation Age of Onset Cancer Father bladder, smoker Stroke Father Cancer Mother lung. smoker Coronary Artery Disease Mother CABG Hypertension Brother Diabetes Brother other (aortic aneurysm) Brother REVIEW OF SYMPTOMS: negative except as noted above PHYSICAL EXAMINATION: VITALS: Blood pressure 136/80, pulse 64, weight 151 lb (68.5 kg), SpO2 97%. GENERAL: The patient is well nourished, well hydrated in no acute distress. , The patient is oriented to time, place, and person. NECK: Supple. No lynphadenopathy, normal thyroid, no thyromegaly. LUNGS: Clear to auscultation bilaterally. no wheezes, rhonchi or rales HEART: Regular rate and rhythm, Normal heart sounds, and No murmurs or gallops IMPRESSION: EM polyps, EM thickening and PMB PLAN: Hysteroscopy, D&C, polypectomy with symphion Pt has been counseled on risks/benefits and alternatives of surgery including but not limited to anesthesia, bleeding, infection, uterine perforation with subsequent injury to pelvic structures including bowel, bladder, ureters and vessels. Pt wishes to proceed with surgery at this time. Pre and post op instructions reviewed. Pt declines BSO for ovarian cyst- would like repeat ultrasound at 6 months. I have reviewed and updated past medical and surgical history, medications and allergies Armin Fuentes MD documented in this encounter [facility] 10-14-2023 History of Presen t illness Narrative documented in this encounter [facility] 09-25-2023 Miscellaneous Notes Ok thank you. Pt does need on our unit prior to her surgery. She is correct. Patient has a pelvic US on Tuesday 10/02. Per US order and documentation, patient to have a repeat US in 6 weeks from her 09/15 US. Spoke with patient to assist with rescheduling. Patient stated that DM wants her to have before her 10/23 surgery. Can you please clarify. (We have an OB patient needing scheduled from 09/28). Thank you. Sanam Farmer RN documented in this encounter [facility] 09-16-2023 Miscellaneous Notes Addended by: KEYONA WINTERS on: 09/16/2023 01:55 PM Modules accepted: Orders It's not allowing me to link the 06/11 order. Please file new order. Keyona Winters RN Patient called and scheduled for ultrasound. Keyona Winters RN Spoke to patient personally- reviewed images with Chassis Mechanic Kelly Mcfarland, I do not agree with interpretation of vascular septum - I would like to get a repeat ultrasound with [facility] in 6 weeks. I discussed this with the patient who Is agreeable. Pt will get labs drawn. Pt understands I do not have previous images to compare the complex cyst to but according to Michelle jordan and patient cyst has been present for years (at least 2018) and stable. Pt will be scheduled for hysteroscopy D&C polypectomy Please assist in scheduling Ultrasound in 6 wks with [facility]- order is in. documented in this encounter [facility] 09-15-2023 Note HNO ID: [id number] Author: Armin Mckeon MD Service: ? Author Type: Physician Type: Progress Notes Filed: 09/15/2023 5:02 PM Note Text: Detention Deputy offered: Patient declines. Rosie Christianson presents for hysteroscopy. Indication: Postmenopausal bleeding and endometrial thickening. Age: [age] year old LMP: No LMP recorded. Patient is postmenopausal. Contraception: none test: n/a VS: BP 134/74 Wt 148 lb (67.1kg) UNIVERSAL PROTOCOL / SAFETY CHECKLIST Procedure to be Performed: EM thickening and PMB Sign In: A Moment of CARE was completed. Personnel directly involved with the procedure wore the appropriate PPE (Personal Protective Equipment). Patient/Surrogate Stated/Verified: PATIENT VERIFIED(optional for EMERGENT procedures): Patient name, Date of , Relevant allergies, and The intended procedure Time Out Communication: Intended patient and procedure match the source documents. Consent documented and matches the intended procedure. Sign Out: SIGN OUT (optional for EMERGENT procedures): All specimen containers correctly labeled. Armin Beckett MD OBJECTIVE: Cervix cleaned with betadine. A single tooth tenaculum was used to grasp cervix. Cervix was dilated. Under sterile conditions, using 60 mL normal saline as distention, ENDOSEE hysteroscopy performed without incident. Endometrial lining is atrophic. Endometrial polyp 3 present. Tubal ostia visualized and normal. Endometrial biopsy performed. PROCEDURE SUMMARY: Patient tolerated procedure well. ASSESMENT: Postmenopausal bleeding, Increased endometrial thickness, and Endometrial polyp with polyp lesions on hysteroscopy. PLAN: Hysteroscopic polypectomy, DANDC in the OR. Armin Beckett MD [facility] 09-15-2023 Instructions Cecy Thapa Ma - 09/15/2023 3:22 PM EST YOUR RECOVERY After your biopsy you may have: Vaginal bleeding (less than a normal menstrual period) Mild cramping Do NOT put anything in the vagina for 1 week after your endometrial biopsy. This includes: tampons douches and refraining from having sexual intercourse If you have any discomfort, you may take an over the counter pain medication (motrin, advil, ibuprofen, tylenol, etc). If this does not relieve your discomfort, contact the office. It is okay to wear a sanitary pad until the discharge and spotting stops. RISKS Although problems seldom occur with endometrial biopsies, there can be some complications. You may feel faint during and shortly after the procedure as well as have some bleeding after the procedure. There is also a risk of infection after the procedure. These complications are rare and can be easily treated. You should contact you doctor is you have any of the following: Heavy bleeding (more than your normal period) Bleeding with clots Severe abdominal pain Fever (more than 100.4F) Foul smelling vaginal discharge RESULTS We will have the results of your biopsy in 1-2 weeks. If you do not hear the results of your biopsy after 2 weeks, please contact the office for the results. If you have any additional questions or concerns please do not hesitate to contact the office. documented in this encounter [facility] 09-15-2023 History of Presen t illness Narrative Detention Deputy offered: Patient declines. Rosie Christianson presents for hysteroscopy. Indication: Postmenopausal bleeding and endometrial thickening. Age: [age] year old LMP: No LMP recorded. Patient is postmenopausal. Contraception: none test: n/a VS: BP 134/74 Wt 148 lb (67.1kg) UNIVERSAL PROTOCOL / SAFETY CHECKLIST Procedure to be Performed: EM thickening and PMB Sign In: A Moment of CARE was completed. Personnel directly involved with the procedure wore the appropriate PPE (Personal Protective Equipment). Patient/Surrogate Stated/Verified: PATIENT VERIFIED(optional for EMERGENT procedures): Patient name, Date of , Relevant allergies, and The intended procedure Time Out Communication: Intended patient and procedure match the source documents. Consent documented and matches the intended procedure. Sign Out: SIGN OUT (optional for EMERGENT procedures): All specimen containers correctly labeled. Armin Beckett MD OBJECTIVE: Cervix cleaned with betadine. A single tooth tenaculum was used to grasp cervix. Cervix was dilated. Under sterile conditions, using 60 mL normal saline as distention, ENDOSEE hysteroscopy performed without incident. Endometrial lining is atrophic. Endometrial polyp 3 present. Tubal ostia visualized and normal. Endometrial biopsy performed. PROCEDURE SUMMARY: Patient tolerated procedure well. ASSESMENT: Postmenopausal bleeding, Increased endometrial thickness, and Endometrial polyp with polyp lesions on hysteroscopy. PLAN: Hysteroscopic polypectomy, D&C in the OR. Amrin Beckett MD documented in this encounter [facility] 06-18-2023 Instructions Brandy Seay APRN.CHEMICAL HANDLER - 06/18/2023 3:21 PM EDT Assessment and Plan ASSESSMENT/PLAN: 1. Acute otitis media, left - ICD9: 382.9, ICD10: H66.92 (primary diagnosis) - Will begin treatment with Amoxicillin for 7 days - The patient should also be given OTC decongestants prn for the first 5-7 days of treatment. - Supportive care with plenty of fluids, rest, and analgesia prn. - Follow up in 3-5 days if symptoms persist or worsen. 2. Viral sinusitis - ICD9: 473.9, 079.99, ICD10: J32.9, B97.89 - Discussed viral etiology and rationale for treatment. - Symptomatic treatment with prn analgesia - Supportive care with fluids and rest - Follow up in 3-5 days if symptoms persist or worsen. - May use flonase for her sinus symptoms. E Tyrese [employer] PL[employer] DIP Student TEACHING PROVIDER (Physician/PA/TECHNICIAN TRAINEE) NOTE OF PERSONAL INVOLVEMENT IN CARE: I have personally seen and examined the patient and performed the medical decision-making components. I have reviewed the Advanced Practice Registered Nurse (TECHNICIAN TRAINEE) Student's documentation and verified the findings in the note as written. Any additions or changes are noted in bold/italics. Signature: Brandy Seay Date: 06/18/2023 Time: 3:20 PM OTITIS MEDIA GENERAL INFORMATION: Otitis media is an infection of the middle ear. The middle ear sits behind the eardrum. This infection may be caused by a virus or bacteria and often follows a cold. Children often have repeat ear infections. Otitis media is not contagious. INSTRUCTIONS: 1. An antibiotic has been prescribed. It should be taken exactly as prescribed. Do not stop the medicine even if the symptoms go away. 2. Ktge-yid-xiepoeo pain medication may be taken or other pain medication as prescribed by the doctor. 3. Nothing should be placed in the ear unless instructed by your doctor. 4. The patient may return to school/daycare or work when the temperature is normal (98.6 F or 37 C). 5. The patient should not swim while the ear is infected. CONTACT YOUR DOCTOR IF YOU OR YOUR CHILD: 1. Does not feel better within 36 hours. 2. Develops a temperature over 102E F (39E C). 3. Starts vomiting or has diarrhea. 4. Develops drainage from the affected ear. 5. Has any new problem that may be related to the medicine prescribed. RETURN TO THE ED IF: 1. You or your child has a severe headache or pain around the ear. 2. You or your child notice swelling around the ear. 3. You or your child has a seizure (convulsion), twitching of the facial muscles, or passes out. 4. You or your child is dizzy, has a stiff neck, or cannot walk or talk normally. 5. Your child becomes more irritable or listless (not interested in his or her surroundings, does not get soothed by you holding him or her). documented in this encounter [facility] 06-18-2023 Note HNO ID: [id number] Author: Brandy Seay APRN.CHEMICAL HANDLER Service: ? Author Type: Nurse Practitioner Type: Progress Notes Filed: 06/18/2023 3:21 PM Note Text: This note was created using [employer]riter. Subjective Rosie Christianson is a 78 year old female. Patient presents with left ear pain for one week. She has the sensation of being underwater in the left ear. Patient also endorses rhinorrhea and left eye watering. She denies fever and cough. The history is provided by the patient. Sinus Problem Pertinent negatives include no chills, congestion, coughing or fever. Review of Systems Constitutional: Negative for chills and fever. HENT: Positive for ear pain, rhinorrhea and sinus pressure. Negative for congestion, ear discharge and sinus pain. Eyes: Positive for discharge (left eye watering). Respiratory: Negative for cough and shortness of breath. All other systems reviewed and are negative. Objective BP 160/96 Pulse 71 Temp 36.8 ?C (98.2 ?F) Resp 18 Wt 67.9 kg (149 lb 9.6 oz) SpO2 95% BMI 24.63 kg/m? PAST MEDICAL HISTORY Diagnosis Date Allergic rhinitis, cause unspecified Allergy-induced asthma 08/20/2015 Anxiety 08/20/2015 Benign hypertension 08/20/2015 Ulcerative colitis without complications (HCC) 08/20/2015 PAST SURGICAL HISTORY Procedure Laterality Date LIGATE FALLOPIAN TUBE NONE REMOVAL GALLBLADDER ALLERGIES Patient has no known allergies. MEDICATIONS Estradiol-Norethindrone Acet (ACTIVELLA) 1-0.5 mg per tablet Take 1 tablet by mouth once daily. clobetasol (TEMOVATE) 0.05 % ointment Apply 1 application to affected area twice daily. X 4 weeks. Then use once weekly. metoprolol succinate ER (TOPROL XL) 50 mg 24 hr tablet Take 1 tablet by mouth once daily. amLODIPine (NORVASC) 5 mg tablet Take 1 tablet by mouth once daily. balsalazide (COLAZAL) 750 mg capsule TAKE THREE CAPSULES BY MOUTH DAILY budesonide-formoterol (SYMBICORT) 80-4.5 mcg/actuation inhaler Inhale 2 Puffs as instructed twice daily. ACTIVELLA 1 MG-0.5 MG TAB Take one(1) tablet daily. amoxicillin (AMOXIL) 875 mg tablet Take 1 tablet by mouth twice daily for 7 days. Hydrochlorothiazide 12.5 mg capsule Take 1 capsule by mouth once daily. (Patient taking differently: Take 12.5 mg by mouth once daily. PRN) FAMILY HISTORY Problem Relation Age of Onset Cancer Father bladder, smoker Stroke Father Cancer Mother lung. smoker Coronary Artery Disease Mother CABG Hypertension Brother Diabetes Brother other (aortic aneurysm) Brother Social History Tobacco Use Smoking status: Never Smokeless tobacco: Never Vaping Use Vaping Use: Never used Substance Use Topics Alcohol use: No Drug use: No Physical Exam Vitals reviewed. Constitutional: General: She is not in acute distress. Appearance: Normal appearance. She is normal weight. She is not ill-appearing, toxic-appearing or diaphoretic. HENT: Right Ear: Tympanic membrane, ear canal and external ear normal. No tenderness. No middle ear effusion. There is no impacted cerumen. Tympanic membrane is not perforated, erythematous, retracted or bulging. Left Ear: Ear canal and external ear normal. No tenderness. A middle ear effusion is present. There is no impacted cerumen. Tympanic membrane is bulging. Tympanic membrane is not perforated, erythematous or retracted. Nose: Rhinorrhea present. Mouth/Throat: Mouth: Mucous membranes are moist. Pharynx: Oropharynx is clear. Uvula midline. Posterior oropharyngeal erythema present. No pharyngeal swelling, oropharyngeal exudate or uvula swelling. Tonsils: No tonsillar exudate or tonsillar abscesses. Cardiovascular: Rate and Rhythm: Normal rate and regular rhythm. Pulmonary: Effort: Pulmonary effort is normal. Breath sounds: Normal breath sounds. Musculoskeletal: Cervical back: Neck supple. No tenderness. Lymphadenopathy: Cervical: No cervical adenopathy. Neurological: General: No focal deficit present. Mental Status: She is alert and oriented to person, place, and time. Mental status is at baseline. Psychiatric: Mood and Affect: Mood normal. Behavior: Behavior normal. Thought Content: Thought content normal. Judgment: Judgment normal. Assessment and Plan ASSESSMENT/PLAN: 1. Acute otitis media, left - ICD9: 382.9, ICD10: H66.92 (primary diagnosis) - Will begin treatment with Amoxicillin for 7 days - The patient should also be given OTC decongestants prn for the first 5-7 days of treatment. - Supportive care with plenty of fluids, rest, and analgesia prn. - Follow up in 3-5 days if symptoms persist or worsen. 2. Viral sinusitis - ICD9: 473.9, 079.99, ICD10: J32.9, B97.89 - Discussed viral etiology and rationale for treatment. - Symptomatic treatment with prn analgesia - Supportive care with fluids and rest - Follow up in 3-5 days if symptoms persist or worsen. - May use flonase for her sinus symptoms. E Tyrese [employer] (more content not included)... [facility] 06-18-2023 History of Presen t illness Narrative This note was created using [employer]riter. Subjective Rosie Christianson is a 78 year old female. Patient presents with left ear pain for one week. She has the sensation of being underwater in the left ear. Patient also endorses rhinorrhea and left eye watering. She denies fever and cough. The history is provided by the patient. Sinus Problem Pertinent negatives include no chills, congestion, coughing or fever. Review of Systems Constitutional: Negative for chills and fever. HENT: Positive for ear pain, rhinorrhea and sinus pressure. Negative for congestion, ear discharge and sinus pain. Eyes: Positive for discharge (left eye watering). Respiratory: Negative for cough and shortness of breath. All other systems reviewed and are negative. Objective BP 160/96 Pulse 71 Temp 36.8 C (98.2 F) Resp 18 Wt 67.9 kg (149 lb 9.6 oz) SpO2 95% BMI 24.63 kg/m PAST MEDICAL HISTORY Diagnosis Date Allergic rhinitis, cause unspecified Allergy-induced asthma 08/20/2015 Anxiety 08/20/2015 Benign hypertension 08/20/2015 Ulcerative colitis without complications (HCC) 08/20/2015 PAST SURGICAL HISTORY Procedure Laterality Date LIGATE FALLOPIAN TUBE NONE REMOVAL GALLBLADDER ALLERGIES Patient has no known allergies. MEDICATIONS Estradiol-Norethindrone Acet (ACTIVELLA) 1-0.5 mg per tablet Take 1 tablet by mouth once daily. clobetasol (TEMOVATE) 0.05 % ointment Apply 1 application to affected area twice daily. X 4 weeks. Then use once weekly. metoprolol succinate ER (TOPROL XL) 50 mg 24 hr tablet Take 1 tablet by mouth once daily. amLODIPine (NORVASC) 5 mg tablet Take 1 tablet by mouth once daily. balsalazide (COLAZAL) 750 mg capsule TAKE THREE CAPSULES BY MOUTH DAILY budesonide-formoterol (SYMBICORT) 80-4.5 mcg/actuation inhaler Inhale 2 Puffs as instructed twice daily. ACTIVELLA 1 MG-0.5 MG TAB Take one(1) tablet daily. amoxicillin (AMOXIL) 875 mg tablet Take 1 tablet by mouth twice daily for 7 days. Hydrochlorothiazide 12.5 mg capsule Take 1 capsule by mouth once daily. (Patient taking differently: Take 12.5 mg by mouth once daily. PRN) FAMILY HISTORY Problem Relation Age of Onset Cancer Father bladder, smoker Stroke Father Cancer Mother lung. smoker Coronary Artery Disease Mother CABG Hypertension Brother Diabetes Brother other (aortic aneurysm) Brother Social History Tobacco Use Smoking status: Never Smokeless tobacco: Never Vaping Use Vaping Use: Never used Substance Use Topics Alcohol use: No Drug use: No Physical Exam Vitals reviewed. Constitutional: General: She is not in acute distress. Appearance: Normal appearance. She is normal weight. She is not ill-appearing, toxic-appearing or diaphoretic. HENT: Right Ear: Tympanic membrane, ear canal and external ear normal. No tenderness. No middle ear effusion. There is no impacted cerumen. Tympanic membrane is not perforated, erythematous, retracted or bulging. Left Ear: Ear canal and external ear normal. No tenderness. A middle ear effusion is present. There is no impacted cerumen. Tympanic membrane is bulging. Tympanic membrane is not perforated, erythematous or retracted. Nose: Rhinorrhea present. Mouth/Throat: Mouth: Mucous membranes are moist. Pharynx: Oropharynx is clear. Uvula midline. Posterior oropharyngeal erythema present. No pharyngeal swelling, oropharyngeal exudate or uvula swelling. Tonsils: No tonsillar exudate or tonsillar abscesses. Cardiovascular: Rate and Rhythm: Normal rate and regular rhythm. Pulmonary: Effort: Pulmonary effort is normal. Breath sounds: Normal breath sounds. Musculoskeletal: Cervical back: Neck supple. No tenderness. Lymphadenopathy: Cervical: No cervical adenopathy. Neurological: General: No focal deficit present. Mental Status: She is alert and oriented to person, place, and time. Mental status is at baseline. Psychiatric: Mood and Affect: Mood normal. Behavior: Behavior normal. Thought Content: Thought content normal. Judgment: Judgment normal. Assessment and Plan ASSESSMENT/PLAN: 1. Acute otitis media, left - ICD9: 382.9, ICD10: H66.92 (primary diagnosis) - Will begin treatment with Amoxicillin for 7 days - The patient should also be given OTC decongestants prn for the first 5-7 days of treatment. - Supportive care with plenty of fluids, rest, and analgesia prn. - Follow up in 3-5 days if symptoms persist or worsen. 2. Viral sinusitis - ICD9: 473.9, 079.99, ICD10: J32.9, B97.89 - Discussed viral etiology and rationale for treatment. - Symptomatic treatment with prn analgesia - Supportive care with fluids and rest - Follow up in 3-5 days if symptoms persist or worsen. - May use flonase for her sinus symptoms. E Tyrese [employer] Student TEACHING PROVIDER (Physician/PA/TECHNICIAN TRAINEE) NOTE OF PERSONAL INVOLVEMENT IN CARE: I have personally seen and examined the patient and performed the medical decision-making components. I have reviewed the Advanced Practice Registered Nurse (TECHNICIAN TRAINEE) Student's documentation and verified the findings in the note as written. Any additions or changes are noted in bold/italics. Signature: Brandy Seay Date: 06/18/2023 Time: 3:20 PM documented in this encounter [facility] 06-11-2023 Miscellaneous Notes Actually that is better at [facility]- I think the compounded is more expensive then that. It was already sent to [facility]. Pt wanting Rx sent to [facility]. See [employer] message. Kae Cohen LPN [employer] message sent to pt with below message. Will await for pt response. Kae Cohen LPN It was ordered. Please tell her that [facility] offers compounding of it as well for cheaper. If not I can order a different topical steroid that would be covered by her insurance- please have her see what they cover. Patient seen in office today. Inquiring if DM was also going to prescribe a cream for her. States she needs to check around for the best sharp. She is willing to order picker/assembler RX in office if you would like to print it. Patient will need a call back. Sanam Farmer RN documented in this encounter [facility] 06-11-2023 Note HNO ID: [id number] Author: Armin Mckeon MD Service: ? Author Type: Physician Type: Progress Notes Filed: 06/11/2023 11:31 AM Note Text: Detention Deputy offered: Patient declines. Rosie is a 78 year old who presents for an annual gynecologic exam without complaints. Reports has h/o bilateral ovarian cysts for years - stable with normal ca 125 levels. Pt does not want surgery unless indicated. Take HRT since age 39. Has some external vaginal itching that started recently. Postmenopausal: Yes since age 39 HRT use: Yes, activella How lonyrs. Last Pap: 02/20/2005 normal History of abnormal pap: No Last mammogram: 2021 normal History of abnormal mammogram: No Sexually active: No History of STDS: None Hot flashes: No Night sweats: No Vaginal dryness: No Exercise: routine Diet: balanced OB History T0 L3 SAB0 IAB0 Ectopic0 Multiple0 Live Births0 Analytical Research Program Manager History LMP: Postmenopausal Age at Menarche: Age at First : Age at Menopause: Analytical Research Program Manager History Comments: Sexual Activity: Yes; Male Contraception: Surgical PAST MEDICAL HISTORY Diagnosis Date Allergic rhinitis, cause unspecified Allergy-induced asthma 08/20/2015 Anxiety 08/20/2015 Benign hypertension 08/20/2015 Ulcerative colitis without complications (HCC) 08/20/2015 PAST SURGICAL HISTORY Procedure Laterality Date LIGATE FALLOPIAN TUBE NONE REMOVAL GALLBLADDER FAMILY HISTORY Problem Relation Age of Onset Cancer Father bladder, smoker Stroke Father Cancer Mother lung. smoker Coronary Artery Disease Mother CABG Hypertension Brother Diabetes Brother other (aortic aneurysm) Brother SOCIAL HISTORY Social History Tobacco Use Smoking status: Never Smokeless tobacco: Never Vaping Use Vaping Use: Never used Substance Use Topics Alcohol use: No Drug use: No REVIEW OF SYSTEMS Abdomen: No abdominal pain, nausea, vomiting, diarrhea, or constipation. No bloating, early satiety, indigestion, or increased flatulence. Bladder: No dysuria, gross hematuria, urinary frequency, + urgency at times Breast: No breast lumps, nipple d/c, overlying skin changes, redness or skin retraction Allergies and current medication updated:Yes EXAM: BP 134/82 Ht 5' 5.354 (1.66m) Wt 148 lb (67.1kg) BMI 24.36 kg/(m2). GENERAL: pleasant, female in no apparent distress HEENT: Normocephalic, atraumatic, mucus membranes moist, and no lesions NECK: Supple, full range of motion, no adenopathy, and thyroid normal DERMATOLOGY: Normal, without lesions, non-icteric, and non-hirsute BREAST: soft, non-tender, symmetric, no dominant mass, normal nipple-areolar complex, no lymphadenopathy, and no nipple discharge ABDOMEN: soft, non-tender, and no masses PELVIC: normal Bartholin's glands, urethra, [place]'s glands, no vulvar lesions, no cervical lesions, good vaginal support, physiologic discharge present, normal appearing perineal body and perianal region, mild hypopigmentation near clitoral reeves and left labia majora. BIMANUAL: uterus normal size, shape and consistency, no adnexal masses, and non-tender- fullness on right. RECTOVAGINAL: deferred. NEURO: alert and oriented x3,exam grossly non-focal EXTREMITIES: normal ASSESSMENT/PLAN: 1) Health maintenance: Pap/HPV screening no longer needed Mammogram ordered Mammogram up to date Nutrition, exercise and routine health maintenance exams reviewed. Calcium/Vitamin D supplementation information provided. Colon cancer screening: up to date with screening BMD: had done a few years ago- normal per patient- declines further 2) Follow up one year or sooner as needed 3) HRT reviewed- orders placed. 4) Clobetasol ordered, proper administration reviewed. 5) Pelvic us ordered, order CA 125 after resulted Armin Beckett MD [facility] 05-29-2023 Miscellaneous Notes Faxed Signed. Please fax Left another detailed message that RX would be sent. Yes, she needed 90 day supply. RX pending. Thank you! Sanam Farmer RN My apologies. Please call the patient- YES, I remember speaking to the patient now. I will write send the Rx for her since she has been on it and it was my fault that I had to reschedule her. Does she get 90 tabs? Please confirm RX and let me know so I can print Left detailed message on identified voicemail. No new annual openings with BIN PILER's before her upcoming appointment. She was scheduled on 06/08 with DM, but was moved due to template change. She was again moved from CP's schedule to DM per provider request. Patient stated earlier that she knows DM. Will relay below information if patient calls back with questions. Sanam Farmer RN Yes she can be without but there is no need for her to get thru a [place] either- she should be able to get estrogen covered by insurance or very cheap at [facility]. Does BIN PILER have an opening so she can get in and get RX sooner? When I spoke with patient before she was previously a [facility] patient. [facility] EXTRACTION SUPERVISOR do not prescribe estrogen. That's why she is transferring. In case she asks, OK for her to be without her estrogen for a period of time? Sanam Farmer RN I can't write a rx for this patient until I have seen her. She will have to get it from her previous physician or wait until she is seen I am sorry. New [facility] patient has appointment with DM on 06/11. She needs a new RX for Activella (her estrogen) faxed to a [facility] pharmacy. It takes several weeks for her RX to arrive and will run out if she sends for it after her appointment. RX pending to be printed. [facility] Customer ID [id number] documented in this encounter [facility] 07-15-2022 Miscellaneous Notes Left detailed message on a secured voicemail. Mamie Dillard Fungal screen did indicate fungal infection. Continue mouthwash as prescribed. Follow-up with PCP if symptoms or not improving. Randy Arrieta APRN.NIKITA documented in this encounter [facility] 07-11-2022 History of Presen t illness Narrative This note was created using [employer]riter. Subjective Rosie Christianson is a 77 year old female. HPI Patient presents with the chief complaint of sore throat. She took a home COVID test 6 days ago which was positive. She states she went on a trip with several people and most of them had gotten an a positive COVID. Her also was positive. He is currently on Paxil bid. She had taken 1 day of the medication but then stopped it. She was told she would have to stop her estrogen and did not want to do this. Denies recent fever. She states the sore throat has gotten worse so she came in. She is having trouble swallowing food and states she has lost a little weight this week because she just cannot eat much. She is urinating normally. Denies vomiting. No chest pain or shortness of breath. Mild cough.She is vaccinated against covid. Review of Systems Constitutional: Positive for fatigue. HENT: Positive for congestion, ear pain and sore throat. Respiratory: Positive for cough. Cardiovascular: Negative. Gastrointestinal: Negative. Genitourinary: Negative. Musculoskeletal: Positive for myalgias. Neurological: Positive for headaches. All other systems reviewed and are negative. PAST MEDICAL HISTORY Diagnosis Date Allergic rhinitis, cause unspecified Allergy-induced asthma 08/20/2015 Anxiety 08/20/2015 Benign hypertension 08/20/2015 Ulcerative colitis without complications (HCC) 08/20/2015 Current Outpatient Medications Medication Sig Dispense Refill amLODIPine (NORVASC) 5 mg tablet Take 1 tablet by mouth once daily. 90 tablet 3 metoprolol succinate ER (TOPROL XL) 50 mg 24 hr tablet Take 1 tablet by mouth once daily. 90 tablet 3 Hydrochlorothiazide 12.5 mg capsule Take 1 capsule by mouth once daily. (Patient taking differently: Take 12.5 mg by mouth once daily. PRN) 30 capsule 12 budesonide-formoterol (SYMBICORT) 80-4.5 mcg/actuation inhaler Inhale 2 Puffs as instructed twice daily. 0 ACTIVELLA 1 MG-0.5 MG TAB Take one(1) tablet daily. 30 2 nystatin (MYCOSTATIN) 100,000 unit/mL suspension Take 5 mL by mouth four times daily for 14 days. 1tsp swish in mouth for several minutes, then swallow (or expectorate) 4 times daily until gone. 280 mL 0 balsalazide (COLAZAL) 750 mg capsule TAKE THREE CAPSULES BY MOUTH DAILY 270 capsule 3 No current facility-administered medications for this visit. PAST SURGICAL HISTORY Procedure Laterality Date NONE FAMILY HISTORY Problem Relation Age of Onset Cancer Father bladder, smoker Stroke Father Cancer Mother lung. smoker Coronary Artery Disease Mother CABG Hypertension Brother Diabetes Brother other (aortic aneurysm) Brother Social History Tobacco Use Smoking status: Never Smokeless tobacco: Never Substance Use Topics Alcohol use: No Drug use: No Objective BP 126/74 Pulse 84 Temp 37.5 C (99.5 F) Resp 18 Wt 66.5 kg (146 lb 9.6 oz) SpO2 97% BMI 23.31 kg/m Physical Exam Vitals reviewed. Constitutional: Appearance: Normal appearance. HENT: Head: Normocephalic and atraumatic. Right Ear: Tympanic membrane, ear canal and external ear normal. Left Ear: Tympanic membrane, ear canal and external ear normal. Nose: Congestion present. Mouth/Throat: Mouth: Mucous membranes are moist. Comments: Erythema to the right anterior pharynx with some white patches. No sign of peritonsillar abscess. Cardiovascular: Rate and Rhythm: Normal rate and regular rhythm. Heart sounds: Normal heart sounds. Pulmonary: Effort: Pulmonary effort is normal. Breath sounds: Normal breath sounds. Musculoskeletal: Cervical back: Neck supple. Lymphadenopathy: Cervical: No cervical adenopathy. Skin: General: Skin is warm and dry. Findings: No rash. Neurological: Mental Status: She is alert. Assessment and Plan ASSESSMENT/PLAN: 1. Sore throat - ICD9: 462, ICD10: J02.9 - Alere Strep Test negative, no culture pending - fungal screen sent and nystatin mouthwash sent. She is on inhaled steroid, concern for thrush. Continue ibuprofen. Follow up with pcp as needed. - STREP A MOLECULAR (POC) - FUNGAL SCREEN Vianey Nuñez PA-C documented in this encounter [facility] Acute otitis media, left- Primary Unspecified otitis media Viral sinusitis Unspecified sinusitis (chronic) [facility] Diagnosis PMB (postmenopausal bleeding)- Primary Postmenopausal bleeding Thickened endometrium Nonspecific (abnormal) findings on radiological and other examination of genitourinary organs Endometrial polyp Polyp of corpus uteri Cyst of right ovary Other and unspecified ovarian cyst [facility] Diagnosis PMB (postmenopausal bleeding)- Primary Postmenopausal bleeding [facility] Diagnosis PMB (postmenopausal bleeding)- Primary Postmenopausal bleeding Endometrial polyp Polyp of corpus uteri Endometrial thickening on ultrasound Pre-op exam Preoperative examination, unspecified [facility] Name Dates Details Patient Instructions Indication:Hypertension, benign Start:26-Sep-2022 Instruction Type:Provider Instructions for Treatment How to Access [facility] [employer] Online using Patient Portal and 3rd [employer] Apps Indication:Hypertension, benign Start:26-Sep-2022 Instruction Type:Patient Edu cation [facility]; [facility] Work Phone: Insonnjuions* Name Dates Details Patient Instructions Indication:Hypertension, benign Start:26-Sep-2022 Instruction Type:Provider Instructions for Treatment How to Access Health Informa tion Online using Patient Portal and 3rd [employer] Apps Indication:Hypertension, benign Start:26-Sep-2022 Instruction Type:Patient Edu cation [facility]; [facility] Work Phone: Instructions* Name Dates Details Patient Instructions Indication:Hypertension, benign Start:26-Sep-2022 Instruction Type:Provider Instructions for Treatment How to Access Health Informa tion Online using Patient Portal and 3rd [employer] Apps Indication:Hypertension, benign Start:26-Sep-2022 Instruction Type:Patient Edu cation [facility]; [facility] Work Phone: instructions* Name Dates Details Patient Instructions Indication:Hypertension, benign Start:26-Sep-2022 Instruction Type:Provider Instructions for Treatment How to Access Health Informa tion Online using Patient Portal and 3rd [employer] Apps Indication:Hypertension, benign Start:26-Sep-2022 Instruction Type:Patient Edu cation [facility]; [facility] Work Phone: Instructions* Name Dates Details Patient Instructions Indication:Hypertension, benign Start:26-Sep-2022 Instruction Type:Provider Instructions for Treatment How to Access Health Informa tion Online using Patient Portal and [employer] Apps Indication:Hypertension, benign Start:26-Sep-2022 Instruction Type:Patient Edu cation [facility]; [facility] Work Phone: Instructions* Name Dates Details Patient Instructions Indication:Hypertension, benign Start:26-Sep-2022 Instruction Type:Provider Instructions for Treatment How to Access Health Informa tion Online using Patient Portal and 3rd [employer] Apps Indication:Hypertension, benign Start:26-Sep-2022 Instruction Type:Patient Edu cation [facility]; [facility] Work Phone: reason for referral (narrative)* Outpatient Procedure (Routine) - Pending Review Specialty Diagnoses / Procedures Referred By Whitney gutierrez Referred To Contact [facility] Diagnoses PMB (postmenopausal bleeding) Thickened endometrium Endometrial polyp Procedures ENDOMETRIAL BIOPSY ENDOMETRIAL BX W/WO ENDOCERVIX BX W/O DILAT SPX Armin Mckeon MD [address] [place] [address] [facility] [address] [place] [address] Referral ID Status Reason Start Date Expiration Date Visits Requested Visits Authorized [id number] Pending Review Auto-Generat ed Referral 3 09/14/2024 1 1 [facility] Summary Purpose Family History No Family History Records FoundUnknown Family Member Name Dates Details Brother 1 Comments:high blood pressure , high cholestrol Status:Active Father Comments:alcoholism, cancer, high blood pressure Status:Active Mother Comments:heart disease Status:Active Unknown Family Member Name Dates Details Brother 1 Comments:high blood pressure , high cholestrol Status:Active Father Comments:alcoholism, cancer, high blood pressure Status:Active Mother Comments:heart disease Status:Active Unknown Family Member Name Dates Details Brother 1 Comments:high blood pressure , high cholestrol Status:Active Father Comments:alcoholism, cancer, high blood pressure Status:Active Mother Comments:heart disease Status:Active Unknown Family Member Name Dates Details Brother 1 Comments:high blood pressure , high cholestrol Status:Active Father Comments:alcoholism, cancer, high blood pressure Status:Active Mother Comments:heart disease Status:Active Unknown Family Member Name Dates Details Brother 1 Comments:high blood pressure , high cholestrol Status:Active Father Comments:alcoholism, cancer, high blood pressure Status:Active Mother Comments:heart disease Status:Active Unknown Family Member Name Dates Details Brother 1 Comments:high blood pressure , high cholestrol Status:Active Father Comments:alcoholism, cancer, high blood pressure Status:Active Mother Comments:heart disease Status:Active Advance Directives No Advanced Directives Records FoundNo Advanced Directives Records FoundNo Advanced Directives Records FoundNo Advanced Directives Records Found Reason for Referral Specialty Diagnoses / Procedures Referred By Contfernandez t Referred To Contact Armin Mckeon MD [address] [place] [address] Referral ID Status Reason Start Date Expiration Date Visits Re quested Visits Authorized [id number] Closed 1 1 Additional Source Comments INFORMATION SOURCE (unrecogn ized section and content) DATE CREATED AUTHOR AUTHOR'S ORGANIZ ATION 09/27/2022 [facility] DATE CREATED AUTHOR AUTHOR'S ORGANIZ ATION 04/05/2023 [facility] DATE CREATED AUTHOR AUTHOR'S ORGANIZ ATION 11/19/2023 [facility] Source Comments (unrecognize d section and content) In the event this informatio n is protected by the Federal Confidentiality of Alcohol and Drug Abuse Patient Records regulations: The Federal rules restrict any use of the information to criminally investigate or prosecute any alcohol or drug abuse patient.[facility] the event this information is protected by the Federal Confidentiality of Alcohol and Drug Abuse Patient Records regulations: The Federal rules restrict any use of the information to criminally investigate or prosecute any alcohol or drug abuse patient.[facility] the event this information is protected by the Federal Confidentiality of Alcohol and Drug Abuse Patient Records regulations: The Federal rules restrict any use of the information to criminally investigate or prosecute any alcohol or drug abuse patient.[facility] the event this information is protected by the Federal Confidentiality of Alcohol and Drug Abuse Patient Records regulations: The Federal rules restrict any use of the information to criminally investigate or prosecute any alcohol or drug abuse patient.[facility] the event this information is protected by the Federal Confidentiality of Alcohol and Drug Abuse Patient Records regulations: The Federal rules restrict any use of the information to criminally investigate or prosecute any alcohol or drug abuse patient.[facility] the event this information is protected by the Federal Confidentiality of Alcohol and Drug Abuse Patient Records regulations: The Federal rules restrict any use of the information to criminally investigate or prosecute any alcohol or drug abuse patient.[facility] the event this information is protected by the Federal Confidentiality of Alcohol and Drug Abuse Patient Records regulations: The Federal rules restrict any use of the information to criminally investigate or prosecute any alcohol or drug abuse patient.[facility] the event this information is protected by the Federal Confidentiality of Alcohol and Drug Abuse Patient Records regulations: The Federal rules restrict any use of the information to criminally investigate or prosecute any alcohol or drug abuse patient.[facility] the event this information is protected by the Federal Confidentiality of Alcohol and Drug Abuse Patient Records regulations: The Federal rules restrict any use of the information to criminally investigate or prosecute any alcohol or drug abuse patient.[facility] the event this information is protected by the Federal Confidentiality of Alcohol and Drug Abuse Patient Records regulations: The Federal rules restrict any use of the information to criminally investigate or prosecute any alcohol or drug abuse patient.[facility] Reason for Visit (unrecogniz ed section and content) Reason Comments Results, Lab Reason Comments Medication Problem Reason Comments Medication Problem Reason Comments Sinus Problem Left side of face an d ear x 1 week Reason Comments Follow Up Reason Comments Future Appointment Reason Comments Pre-Op Exam FOR RECORDS PERTAINING TO PATIENTS WHO ARE OR HAVE BEEN ENROLLED IN A CHEMICAL DEPENDENCY/SUBSTANCEABUSE PROGRAM, SOME INFORMATION MAY BE OMITTED. This clinical summary was aggregated from multiple sources. Caution should be exercised in using it in the provision of clinical care. This summary normalizes information from multiple sources, and as a consequence, information in this document may materially change the coding, format and clinical context of patient data. In addition, data may be omitted in some cases. CLINICAL DECISIONS SHOULD BE BASED ON THE PRIMARY CLINICAL RECORDS. [employer] [facility]. provides no warranty or guarantee of the accuracy or completeness of information in this document.
[2023-11-20] MEDS: Lactated Ringers 1,000 ML 15 ML IV (10:15)
--- NOTE | 2023-11-20 11:15 | EMB_PTH ---
PATHOLOGY RESULTS PATIENT: LUKE HUNTER LOC: [facility] [place] U#:[id number] AGE/SX: 78/F ROOM: RE11/20/[address]: Dr. Rose Mary Clemons MD : 1945 BED: DIS: 11/20/2023 SPEC #: [id number] RECD: 11/20/23 13:11 STATUS: ANALY MAGUIRE #: [id number] ALLEN: 11/20/23 11:[address]: Rose Mary Clemons DEPT: SURGICAL PATHOLOGY RECD BY: Andra Jones ENTERED: 11/20/23 13:56 SP TYPE: ENDOM BX/C BRETTHR DR: Dr. Екатерина Rodriguez DO Tissues: Endometrium, NOS Procedures: Surgery Specimen Level IV HEADER OPERATION: Hysteroscopy, D & C Symphion, polypectomy PRE-OP DIAGNOSIS: Endometrial polyps TISSUE SUBMITTED: Endometrial curettings and endometrial polyp MICROSCOPIC DIAGNOSIS Endometrial curettings and endometrial polyp, D & C and polypectomy: Proliferative endometrium with focal cystic changes. Fragments of myometrium. A fragment of benign endocervical mucosa with moderate to marked chronic inflammation. SALLY:[email or web address] 11/23/2023 MICROSCOPIC DESCRIPTION Slides are reviewed. GROSS DESCRIPTION Received in fixative is one container labeled with the patient's name and designated endometrial curettings and polyp. The specimen consists of multiple irregular fragments of vieira soft tissue mixed with mucoid tissue that in aggregate measure 3.0 x 2.5 x 0.2 cm. The specimen is totally submitted in one cassette. / SALLY:sarabjit 11/20/2023 TC:5 CPT: 18924
--- NOTE | 2023-11-20 11:32 | PCM.OPRPT ---
Report of Operation Date of Procedure: 11/20/23 Pre-Operative Diagnosis: PMB, Endometrial Polyp Post-Operative Diagnosis: Same Surgery/Procedure Performed:: Hysteroscopy, D&C, polypectomy Description of Surgical Findings:: 2 endometrial polyps noted. Both tubal ostia visualized. Fluid deficit 350cc Surgeon: Rose Mary Beckett civil engineer land development: None ([employer] BL[employer] student) Type of Anesthesia: MAC Specimen's removed: Endometrial curettings and Endometrial polyps Drains: none Estimated Blood Loss (mL): <5cc Fluids Replaced: 300 Description of Procedure: Informed consent was obtained the patient was taken the operating room she was placed in supine position. She was given anesthesia. She was then placed in the [facility] where she was prepped and draped in the normal sterile fashion. bladder drained 100cc clear urine drained. At this time the weighted speculum was placed in the posterior fornix of vagina. Single-tooth tenaculum was used to gently grasp the anterior lip the cervix. At this time the uterine cavity was sounded to approximately 8 cm. Gentle dilatation was performed once adequate dilatation of the cervix was achieved the hysteroscope using normal saline as a distention medium was placed. Tubal ostia visualized. 2 endometrial polyp like appearing masses noted near fudus on posterior aspect. Symphion resting device used to obtain endometrial curettings and to perform polypectomy. Tissue will be sent to pathology for evaluation. Tenaculum removed. Good hemostasis. Instrument, lap count correct x 2. Vaginal Sweep was negative. Procedure Start Time: 11:22 Procedure Stop Time: 11:31 Complications none Admit VTE Documentation VTE Present on Admission: Yes VTE Mechan Device Prophylaxis: SCD's VTE Pharm Prophylaxis ordered?: No Reason prophylaxis not ordered:: Procedure Not Indicated
--- NOTE | 2023-11-20 11:36 | DCINST_ITS ---
Discharge Instructions Diet Discharge Diet: No restrictions Activity May resume sexual activity in: 1 week Dressing / Incision Call your doctor if you observe: Fever of 101 or Higher, Inability to urinate, Using more than 1 pad per hour and Uncontrolled pain Follow Up Care Please Follow Up With: Rose Mary Beckett MD When: 1-2 weeks post OP if you need an appointment please call [phone] Test Results: Test results from this visit will be discussed in further detail at your follow- up appointment, if applicable. Discharge Plan Admission Attending Provider: Rose Mary Beckett Primary Care Provider: Екатерина Rodriguez Discharge Orders/Prescriptions Prescriptions: No Action hydrochlorothiazide 12.5 mg tablet 12.5 mg PO .prn metoprolol succinate 50 MG tablet 50 mg PO DAILY amlodipine 5 MG tablet 5 mg PO DAILY balsalazide 750 MG capsule 3 cap PO DAILY Patient Comments: TAKE 3 CAPSULES BY MOUTH TWICE DAILY budesonide-formoterol 10.2 GM HFA aerosol inhaler 1 puff IH DAILY cetirizine 10 MG capsule 10 mg PO DAILY estradiol-norethindrone acet 1-0.5 mg tablet 1 tab PO DAILY Patient Comments: TAKE 1 TABLET BY MOUTH EVERY DAY Referrals / Follow Up: Екатерина Rodriguez DO [Primary Care Provider] - Disposition Disposition (needs filled in before D/C Order can be placed): Home, Self Care
== END 2023-11-20 13:50 | disposition home or self-care (01) ==
LOC: SDC 09:32 → AC 09:33
PROVIDERS: PCP Internal Medicine; Referring Provider Obstetrics & Gynecology; Visit Provider Obstetrics & Gynecology
PROC: 0UB98ZZ Excision of Uterus, Via Natural or Artificial Opening Endoscopic (ICD-10-PCS; CPT 58558; principal; 2023-11-20 11:00)
DX: N84.0 Polyp of corpus uteri (principal); I10 Essential (primary) hypertension; Z90.49 Acquired absence of other specified parts of digestive tract; Z86.16 Personal history of COVID-19
CPT/HCPCS: 58558; 00952; 36415; 80048; 85027; 88305; 93005; J7120; J2405

== ENCOUNTER → 2024-01-21 | Outpatient (CLI) | payer MEDICARE, SELFPAY ==
--- NOTE | 2024-01-21 10:19 | US_ITS ---
PROCEDURE: RENAL ULTRASOUND - COMPLETE REASON FOR EXAM: Female, 78 years old. Splenomegaly TECHNIQUE: Ultrasound evaluation of the bilateral kidneys was performed with real-time ultrasonography and static grayscale imaging. COMPARISON: None. FINDINGS: RIGHT KIDNEY: Normal location of the right kidney which is normal in size. The right kidney measures 10.1 x 4.4 x 5.1 cm. There is a normal cortex of the right kidney. The renal cortex measures 1.2 cm. There is no right renal mass or cyst. There are no right renal calculi. There is no right hydronephrosis. LEFT KIDNEY: Normal location of the left kidney which is normal in size. The left kidney measures 8.6 x 3.4 x 3 cm. There is a normal cortex of the left kidney. The renal cortex measures 1.2 cm. There is no left renal mass or cyst. There are no left renal calculi. There is no left hydronephrosis. SPLEEN: The spleen is normal in size measuring about 7.9 cm in length. US/Abdomen Limited IMPRESSION: 1. Unremarkable examination. 2. No evidence of splenomegaly. Electronically Signed: Sidney Quiroz MD at 15:17 EDT ,
== END | disposition home or self-care (01) ==
LOC: US 10:18
PROVIDERS: PCP Internal Medicine; Referring Provider Internal Medicine; Visit Provider Internal Medicine
DX: R16.1 Splenomegaly, not elsewhere classified (principal)
CPT/HCPCS: 76705

== ENCOUNTER 2025-08-06 14:38 | Emergency (ER) | payer MEDICARE, SELFPAY ==
[2025-08-06 14:39] VITALS: BP 185/78; PULSE 74; RESP 16; TEMP 37; O2SAT 98; BMI 23.2
--- NOTE | 2025-08-06 14:54 | RAD_ITS ---
PROCEDURE: L/S SPINE MIN 4 VIEWS 08/06/2025 REASON FOR EXAM: FELL FROM 5 FOOT HEIGHT PAIN TO PALPATION SACRUM TECHNIQUE: Procedure Code: RADSPLS Modality: DX Procedure: L/S SPINE MIN 4 VIEWS COMPARISON: None FINDINGS: Vertebral body heights: Negative for fracture. Alignment: Mild anterolisthesis of L5 respect to S1. oblique view show no definitive pars defects.. Disc spaces: Severe degenerative disc disease from L4-S1. Facet joints: Severe bilateral facet joint hypertrophy from L3-S1.. Soft tissues: Adjacent soft tissues negative. Other: Vascular calcifications abdominal aorta its branches. Normal amount of stool in the imaged colon. RAD/L/S Spine Min 4 Views IMPRESSION: Degenerative changes particularly in the lower lumbar spine. Negative for abnormality of the lumbar spine. Constipation. Reading Location: [id number]
--- NOTE | 2025-08-06 15:10 | CT_ITS ---
PROCEDURE: BRAIN/HEAD WITHOUT CONTRAST 08/06/2025 REASON FOR EXAM: Mechanical fall. TECHNIQUE: Procedure Code: CTBR Modality: CT Procedure: BRAIN/HEAD WITHOUT CONTRAST Coronal and Sagittal reconstruction series were provided. One or more dose reduction techniques were used (e.g., Automated exposure control, adjustment of the mA and/or kV according to patient size, use of iterative reconstruction technique. RADIATION DOSE SUMMARY: CTDlvol: 44.99 mGy DLP: 863.60 mGycm COMPARISON: None available. FINDINGS: No acute hemorrhage. No acute transcortical infarct. Patchy periventricular and subcortical white matter hypodensities in the cerebral hemispheres likely reflecting chronic microvascular ischemic changes. No significant mass effect or brain herniation. The ventricular system and sulci/fissures are within normal limits of size and configuration for the patient's stated age of 80 years. Partially calcified choroid plexus cysts. No extra-axial fluid collection. The basal cisterns are patent. The mastoid air cells are clear. The paranasal sinuses are predominantly clear. Degenerative changes of the temporomandibular joints. The calvarium appears intact. Atherosclerotic calcification of the carotid siphons. CT/Brain/Head without Contrast IMPRESSION: No CT evidence of acute intracranial hemorrhage, transcortical infarct, or sign ificant mass effect. Reading Location: [id number]
--- NOTE | 2025-08-06 15:55 | EDS_ITS ---
HPI History of Present Illness Chief Complaint: Fall Detail of Chief Complaint: Patient was jumping from cabinet the cabinet to get spider webs from the ce Informant: patient Onset/Context/Timing Onset: Today and Hours Mechanism/Context: Blunt Injury and Fall (Approximately 5 feet) Location of pain/injuries: - (Head and low back lumbar sacral region) Quality of Pain: Dull and Aching Current Severity: HPI narrative Maximum Severity: HPI narrative PFSH PFSH Medical History (Updated 10/08/23 @ 10:22 by Isabella Mccloud) Wears hearing aid Wears glasses Cancer Post-menopausal Asthma Non-smoker Leg cramps History of pain when walking History of edema HTN (hypertension) Home Medications ?Medication ?Instructions ?Recorded ?Last Taken ?Type amlodipine 5 mg tablet 5 mg PO DAILY htn 07/30/19 0 11/20/23 History balsalazide 750 mg capsule 3 cap PO DAILY colon health 07/30/19 Unknown History metoprolol succinate 50 mg 50 mg PO DAILY 07/30/19 History tablet,extended release 24 hr budesonide-formoterol HFA 80 1 puff IH DAILY allergies 09/19/19 09/26/19 09:30 History mcg-4.5 mcg/actuation aerosol inhaler cetirizine 10 mg capsule 10 mg PO DAILY allergies Unknown History estradiol-norethindrone acet 1 1 tab PO DAILY 10/08/23 Unknown History mg-0.5 mg tablet ammonium lactate 12 % lotion topical BID PRN dry skin 08/06/25 08/06/25 History doxycycline hyclate 100 mg capsule 100 mg PO BID 08/06 Unknown History lncynbwv-mffwmleci-cyyfxxfuh 3.5 drp 08/06/25 Unknown History mg-10,000 unit/mL-1 % ear drops,susp Allergy/AdvReac Type Severity Reaction Status Date / Time epinephrine AdvReac Other Verified 08/06/25 14:40 lidocaine AdvReac Other Verified 08/06/25 14:40 Family History Father Heart disease Hypertension Kidney disease CVA (cerebral vascular accident) Mother Heart disease Surgical History (Updated 10/08/23 @ 10:22 by Isabella Mccloud) Hx of colonoscopy Hx laparoscopic cholecystectomy Social History (Updated 10/03/19 @ 15:48 by Julissa BLANC, PAV[place]) Smoking Status: Never smoker alcohol intake: never EXAM Physical Exam Const Vital Signs: 08/06/25 14:39 08/06/25 14:47 Temperature 98.6 F Temperature Source Oral Pulse Rate 74 Respiratory Rate 16 Respiratory Effort Normal Non-Labored Blood Pressure 185/78 H Blood Pressure Mean 113 Pulse Ox 98 Oxygen Delivery Method Room Air MDM MDM Radiography Chest X-Ray - ED: Read by ED Physician (4 view x-ray of the LS-spine reveals significant degenerative changes of the LS-spine. There is slight anterior spondylosis L4-5. There is calcification of the aorta. There is no acute abnormality noted.) Diagnostic Testing: Clinical Impression(s) from Imaging Studies Lumbar Spine X-Ray 08/06/25 14:54 IMPRESSION: Degenerative changes particularly in the lower lumbar spine. Negative for abnormality of the lumbar spine. Constipation. Reading Location: [id number] Brain CT 08/06/25 15:10 IMPRESSION: No CT evidence of acute intracranial hemorrhage, transcortical infarct, or significant mass effect. Reading Location: [id number] CT of the head was reviewed by me. I do not appreciate any abnormality. Formal read by radiologist is no CT evidence of acute intracranial hemorrhage, transcortical infarct or mass effect. Discharge Plan Triage Chief Complaint: Fall ED Provider: Esvin Pelaez Dx/Rx/DC Orders Prescriptions: No Action metoprolol succinate 50 MG tablet 50 mg PO DAILY amlodipine 5 MG tablet 5 mg PO DAILY balsalazide 750 MG capsule 3 cap PO DAILY Patient Comments: TAKE 3 CAPSULES BY MOUTH TWICE DAILY budesonide-formoterol 10.2 GM HFA aerosol inhaler 1 puff IH DAILY cetirizine 10 MG capsule 10 mg PO DAILY estradiol-norethindrone acet 1-0.5 mg tablet 1 tab PO DAILY Patient Comments: TAKE 1 TABLET BY MOUTH EVERY DAY ammonium lactate 12 % lotion topical BID PRN doxycycline hyclate 100 mg capsule 100 mg PO BID byibjhsq-rbycmhsyv-OK 3.5-10,000-1 mg/mL-unit/mL-% drops,suspension Patient Comments: INSTILL 3 DROPS INTO LEFT EAR THREE TIMES DAILY FOR 5 DAYS Primary Care Provider: Екатерина Rodriguez Referrals: Екатерина Rodriguez DO [Primary Care Provider, Internal Medicine] Print Language: [place]
--- NOTE | 2025-08-06 15:55 | EX.ED.GENINJ ---
HPI History of Present Illness Chief Complaint: Fall Detail of Chief Complaint: Patient was jumping from cabinet the cabinet to get spider webs from the ce Informant: patient Onset/Context/Timing Onset: Today and Hours Mechanism/Context: Blunt Injury and Fall (Approximately 5 feet) Location of pain/injuries: - (Head and low back lumbar sacral region) Quality of Pain: Dull and Aching Current Severity: HPI narrative Maximum Severity: HPI narrative Worsened by: Palpation Relieved by: Nothing Associated Symptoms Associated Symptoms: Positive for Amnesia; Negative for Parasthesias, Weakness, Loss of function, Inability to ambulate or Loss of consciousness Length of loss of consciousness: Patient truly on certain whether she had LOC Narrative Narrative: Patient is an 80-year-old woman. She was on top of countertop cleaning spiderweb from the ceiling. She started to fall and grabbed cabinet. The cabinet gave way. She landed on her buttocks and apparently hit her head. She does not recall anything after she grabbed the cabinet. She does complain of head pain. She denies double vision, blurred vision loss of vision. Denies ringing or ears or decreased hearing. She denies neck pain. She denies paresthesia, anesthesia or motor weakness. She denies cardiac or respiratory symptoms. She denies GI symptoms. She denies hematuria. She is not on an anticoagulant or antithrombotic. Prior similar symptoms: No Recent Illness/Hospitalization: No [facility] Medical History Wears hearing aid Wears glasses Cancer Post-menopausal Asthma Non-smoker Leg cramps History of pain when walking History of edema HTN (hypertension) Home Medications ?Medication ?Instructions ?Recorded ?Last Taken ?Type amlodipine 5 mg tablet 5 mg PO DAILY htn 07/30/19 11/20/23 History balsalazide 750 mg capsule 3 cap PO DAILY colon health 07/30/19 Unknown History metoprolol succinate 50 mg 50 mg PO DAILY 07/30/19 11/20/23 History tablet,extended release 24 hr budesonide-formoterol HFA 80 1 puff IH DAILY allergies 09/19/19 09/26/19 09:30 History mcg-4.5 mcg/actuation aerosol inhaler cetirizine 10 mg capsule 10 mg PO DAILY allergies 09/19/19 Unknown History estradiol-norethindrone acet 1 1 tab PO DAILY 10/08/23 Unknown History mg-0.5 mg tablet ammonium lactate 12 % lotion topical BID PRN dry skin 08/06/25 08/06/25 History doxycycline hyclate 100 mg capsule 100 mg PO BID 08/06/25 Unknown History ohrbutjj-egquszcxx-iowtjoble 3.5 drp 08/06/25 Unknown History mg-10,000 unit/mL-1 % ear drops,susp Allergy/AdvReac Type Severity Reaction Status Date / Time epinephrine AdvReac Other Verified 08/06/25 14:40 lidocaine AdvReac Other Verified 08/06/25 14:40 Family History Father Heart disease Hypertension Kidney disease CVA (cerebral vascular accident) Mother Heart disease Surgical History Hx of colonoscopy Hx laparoscopic cholecystectomy Social History Smoking Status: Never smoker alcohol intake: never ROS ROS ED Constitutional Constitutional ED: Denies chills, fever(s) or subjective Eyes Eyes: Denies blurry vision or change in vision ENT ENT ED: Reports other Details: No drainage from ears or epistaxis. ; Denies ear pain, rhinorrhea or sore throat Cardiovascular Cardiovascular: Denies chest pain or palpitations Respiratory/Chest Respiratory/Chest: Denies cough, dyspnea or dyspnea on exertion Gastrointestinal Gastrointestinal: Denies abdominal pain, diarrhea or vomiting Genitourinary Genitourinary ED: Denies hematuria Musculoskeletal Musculoskeletal: Reports back pain; Denies arthralgias, myalgias or neck pain Integumentary Denies rash Neurologic Neurologic: Denies headache(s) or paresthesias Psychiatric Psychiatric: Denies anxiety or depression Endocrine Endocrinology: Denies cold intolerance or heat intolerance Hematologic/Lymphatic Hematologic/Lymphatic: Denies easy bleeding or easy bruising EXAM Physical Exam Const Vital Signs: 08/06/25 14:39 08/06/25 14:47 Temperature 98.6 F Temperature Source Oral Pulse Rate 74 Respiratory Rate 16 Respiratory Effort Normal Non-Labored Blood Pressure 185/78 H Blood Pressure Mean 113 Pulse Ox 98 Oxygen Delivery Method Room Air Positive well nourished and well developed Constitutional Narrative: Patient is a pleasant 80-year-old who looks younger than age. She is in no distress. Blood pressure is elevated. She informing that she has whitecoat syndrome. General Appearance ED: well developed HEENT Reports TM's clear HEENT Narrative: There is no clinical findings of basilar skull fracture. There is no palp depression. atraumatic and tenderness Nose: Negative for septum abnormal Tympanic Membrane ED: Yes TM's clear Eyes PERRL and EOMs intact bilaterally General Eye ED: Yes other Other Details: There is no nystagmus. Neck full ROM General: Negative for tenderness Chest Wall palpation of chest normal Resp normal respiratory effort Cardio regular rhythm, S1 normal heart sound, S2 normal heart sound and no murmurs Rate: regular rate GI normal to inspection, nondistended, normoactive bowel sounds, non-tender, non-distended and no masses Palpation: soft Back/Spine normal to inspection; Negative for no thoracic nor lumbar tenderness Back/Spine Narrative: There is pain the patient L4, L5 and upper portion of the sacrum. Lumbar Spine / Lower Back: straight leg raise negative bilaterally Extremity normal to inspection and full ROM General Extremety ED: Negative for deformity or edema General Extremity: Negative for deformity or edema Neuro oriented x3, CN's II-XII intact bilaterally, moves all extremities, no focal motor deficits, no sensory deficits noted and gait normal Saad Coma Scale: document GCS findings Spontaneous Obeys Commands Oriented 15 Sensorium / Orientation: alert Deep Tendon Reflexes: Rt Triceps (C7): 1+, Lt Triceps (C7): 1+, Rt Biceps (C5, C6): 1+, Lt Biceps (C5, C6): 1+, Rt Brachioradialis (C6): 1+, Lt Brachioradialis (C6): 1+, Rt Patellar (L4): 1+, Lt Patellar (L4): 1+, Rt Ankle (S1): 1+ and Lt Ankle (S1): 1+ Deep Tendon Reflexes Back: Rt Patellar (L4): 1+, Lt Patellar (L4): 1+, Rt Ankle (S1): 1+ and Lt Ankle (S1): 1+ Plantar Reflex: Downgoing: bilateral (There is no clonus at the ankles.) Psych mental status grossly normal and thought process normal Skin no rashes or lesions noted, no wounds, skin turgor normal and no jaundice MDM MDM MDM Narrative Medical decision making narrative: In light of patient's mechanism age of 80 amnesia probable loss of conscious per the [place] CT head rule and [place] rule imaging of the head is indicated. CT of the head was ordered for this reason. Because she has pain to palpation of the lower lumbar sacral area x-ray of the LS spine was obtained to rule out compression fracture. Radiography Chest X-Ray - ED: Read by ED Physician (4 view x-ray of the LS-spine reveals significant degenerative changes of the LS-spine. There is slight anterior spondylosis L4-5. There is calcification of the aorta. There is no acute abnormality noted.) Diagnostic Testing: Clinical Impression(s) from Imaging Studies Lumbar Spine X-Ray 08/06/25 14:54 IMPRESSION: Degenerative changes particularly in the lower lumbar spine. Negative for abnormality of the lumbar spine. Constipation. Reading Location: [id number] CT 08/06/25 15:10 IMPRESSION: No CT evidence of acute intracranial hemorrhage, transcortical infarct, or significant mass effect. Reading Location: [id number] CT of the head was reviewed by me. I do not appreciate any abnormality. Formal read by radiologist is no CT evidence of acute intracranial hemorrhage, transcortical infarct or mass effect. Discharge Plan Triage Chief Complaint: Fall ED Provider: Esvin Pelaez Dx/Rx/DC Orders Clinical Impression: Concussion with loss of consciousness <= 30 min, Posttraumatic amnesia, Contusion of lower back and pelvis, initial encounter, Injury due to fall Instructions: ED Concussion, ED Back Contusion Prescriptions: No Action metoprolol succinate 50 MG tablet 50 mg PO DAILY amlodipine 5 MG tablet 5 mg PO DAILY balsalazide 750 MG capsule 3 cap PO DAILY Patient Comments: TAKE 3 CAPSULES BY MOUTH TWICE DAILY budesonide-formoterol 10.2 GM HFA aerosol inhaler 1 puff IH DAILY cetirizine 10 MG capsule 10 mg PO DAILY estradiol-norethindrone acet 1-0.5 mg tablet 1 tab PO DAILY Patient Comments: TAKE 1 TABLET BY MOUTH EVERY DAY ammonium lactate 12 % lotion topical BID PRN doxycycline hyclate 100 mg capsule 100 mg PO BID wctvldor-vjqbvewhu-QB 3.5-10,000-1 mg/mL-unit/mL-% drops,suspension Patient Comments: INSTILL 3 DROPS INTO LEFT EAR THREE TIMES DAILY FOR 5 DAYS Primary Care Provider: Екатерина Rodriguez Referrals: Екатерина Rodriguez, [Primary Care Provider, Internal Medicine] - 1 Week if not improving Activity Restrictions/Additional Instructions: You will feel worse over the next 24 to 48 hours. You will hurt more places and you presently do. You may hurt for more than a week. Apply ice to areas of discomfort 6-8 times a day. Print Language: Korean Disposition Disposition: Home, Self Care
[2025-08-06 16:13] VITALS: BP 154/81; PULSE 66; RESP 14; TEMP 36.7; O2SAT 98
== END 2025-08-06 16:22 | disposition home or self-care (01) ==
PROVIDERS: Emergency Provider Emergency Medicine; PCP Internal Medicine; Visit Provider Emergency Medicine
DX: S06.0XAA Concussion with loss of consciousness status unknown, initial encounter (principal); S20.229A Contusion of unspecified back wall of thorax, initial encounter; I10 Essential (primary) hypertension; S30.0XXA Contusion of lower back and pelvis, initial encounter; R41.3 Other amnesia; W17.89XA Other fall from one level to another, initial encounter; Y93.89 Activity, other specified; Z79.899 Other long term (current) drug therapy; J45.909 Unspecified asthma, uncomplicated; Z79.51 Long term (current) use of inhaled steroids; Z90.49 Acquired absence of other specified parts of digestive tract
CPT/HCPCS: 70450; 72110; 99282